=== PATIENT | male | born 1995 | race Hispanic/Latino ===

== ENCOUNTER 2018-08-24 17:40 | Emergency (ER) | payer SELFPAY ==
--- NOTE | 2018-08-24 19:13 | RAD REPORT ---
EXAM DESCRIPTION: RAD - Foot Left 2 View - 08/24/2018 7:01 pm CLINICAL HISTORY: Foot pain FINDINGS: A radiopaque foreign body is not seen. No fracture or dislocation noted
--- NOTE | 2018-08-24 20:06 | ER ---
Nurse's Notes [facility] Name: Juan Carlos Shepherd Age: 23 yrs Sex: Male : 1995 Arrival Date: 08/24/2018 Time: 17:42 Bed 18 Private MD: Diagnosis: Puncture wound without foreign body of foot Presentation: 08/24 17:49 Presenting complaint: Patient states: stepped on a martin nail, now has pain to the left sg foot, worsens with walking or bearing weight. Transition of care: patient was not received from another setting of care. Onset of symptoms was August 24, 2018. Risk Assessment: Do you want to hurt yourself or someone else? Patient reports no desire to harm self or others. Initial Sepsis Screen: Does the patient meet any 2 criteria? No. Patient's initial sepsis screen is negative. Does the patient have a suspected source of infection? No. Patient's initial sepsis screen is negative. Care prior to arrival: None. 17:49 Method Of Arrival: Ambulatory sg 17:49 Acuity: VINNY 4 sg Historical: - Allergies: 17:50 No Known Allergies; sg - Home Meds: 18:14 None [Active]; sg - PMHx: 18:14 None; sg - PSHx: 17:50 None; sg - Immunization history:: Adult Immunizations up to date. - Social history:: Smoking status: Patient/guardian denies using tobacco. - Ebola Screening: : Patient negative for fever greater than or equal to 101.5 degrees Fahrenheit, and additional compatible Ebola Virus Disease symptoms Patient denies exposure to infectious person Patient denies travel to an Ebola-affected area in the 21 days before illness onset No symptoms or risks identified at this time. Screenin:15 Abuse screen: Denies threats or abuse. Denies injuries from another. Nutritional ed1 screening: No deficits noted. Tuberculosis screening: No symptoms or risk factors identified. Fall Risk None identified. Assessment: 19:15 General: Appears in no apparent distress. Behavior is calm, cooperative. Pain: ed1 Complains of pain in arch of left foot Pain currently is 6 out of 10 on a pain scale. Quality of pain is described as aching, throbbing, Pain began 2 hours ago. Is continuous, Aggravated by increased activity, weight bearing. Neuro: Level of Consciousness is awake, alert, obeys commands, Oriented to person, place, time, situation. Cardiovascular: Denies chest pain, Heart tones S1 S2 present. Respiratory: Airway is patent Respiratory effort is even, unlabored, Breath sounds are clear bilaterally. Denies cough, shortness of breath. GI: No signs and/or symptoms were reported involving the gastrointestinal system. : No signs and/or symptoms were reported regarding the genitourinary system. EENT: No signs and/or symptoms were reported regarding the EENT system. Derm: Skin is healthy with good turgor, Skin is dry, Skin is normal, Skin temperature is warm. Musculoskeletal: Circulation, motion, and sensation intact. Range of motion: intact in all extremities. Injury Description: Puncture sustained to left foot was sustained 1-2 hours ago. 20:30 Reassessment: Patient appears in no apparent distress at this time. No changes from ed1 previously documented assessment. Patient and/or family updated on plan of care and expected duration. Pain level reassessed. Patient is alert, oriented x 3, equal unlabored respirations, skin warm/dry/pink. Vital Signs: 18:13 BP 106 / 62; Pulse 87; Resp 18; Temp 98.2; Pulse Ox 100% on R/A; Weight 68.95 kg; sg Height 5 ft. 3 in. (160.02 cm); Pain 4/10; 19:15 BP 109 / 71; Pulse 89; Resp 17; Temp 98.3(O); Pulse Ox 100% on R/A; Pain 6/10; ed1 20:30 BP 106 / 84; Pulse 73; Resp 17; Pulse Ox 100% on R/A; Pain 4/10; ed1 18:13 Body Mass Index 26.93 (68.95 kg, 160.02 cm) ED Course: 17:42 Patient arrived in ED. as 17:50 Triage completed. sg 17:50 Arm band placed on. sg 18:03 Yareli Gracia FNP-C [facility]. snw 18:03 Sheldon Hinds MD is Attending Physician. snw 19:01 XRAY Foot LEFT 2 View In Process Unspecified. EDMS 19:15 Mili Ayala, RN is Primary Nurse. ed1 19:15 Patient has correct armband on for positive identification. Bed in low position. Call ed1 light in reach. Adult w/ patient. 20:24 Wound care: to puncture located on left foot was cleaned with Hibiclens, dressed with ed1 Neosporin, band aid, Patient tolerated well. 20:29 No provider procedures requiring assistance completed. Patient did not have IV access ed1 during this emergency room visit. 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 Exp: ed1 07/24/2020. Lot #: [id number]. } Route: IM; Site: left deltoid; 20:31 Follow up: Response: Medication administered at discharge. ed1 20:24 Drug: Hibiclens 4 % 1 application Route: Topical; Site: wound; ed1 20:24 Drug: Doxycycline 100 mg Route: PO; ed1 20:31 Follow up: Response: Medication administered at discharge. ed1 Outcome: 20:05 Discharge ordered by . abigail 20:29 Discharged to home ambulatory, with family. ed1 20:29 Condition: good 20:29 Discharge instructions given to patient, Instructed on discharge instructions, follow up and referral plans. medication usage, wound care, Demonstrated understanding of instructions, follow-up care, medications, wound care, Prescriptions given X 2. 20:30 Patient left the ED. ed1 Signatures: Dispatcher [employer] EDDariusz Griffith RN RN Yareli Vigil FNP-C FNP-Malorie Abel Erika RN RN ed1 Corrections: (The following items were deleted from the chart) 18:37 17:49 Acuity: VINNY 5 brea
--- NOTE | 2018-08-24 20:06 | EDPHYS ---
Physician Documentation [facility] Name: Juan Carlos Shepherd Age: 23 yrs Sex: Male : 1995 Arrival Date: 08/24/2018 Time: 17:42 Bed 18 Private MD: ED Physician Sheldon Hnids HPI: 08/24 20:25 This 23 yrs old Male presents to ER via Ambulatory with complaints of Puncture snw Wound To Foot - Nail. 20:25 The patient presents with an injury. The complaints affect the left foot. Context: The snw problem was sustained outdoors, resulted from the patient stepping on a nail, while wearing shoes, the patient can fully bear weight, the patient is able to ambulate. Onset: The symptoms/episode began/occurred suddenly, and became persistent. Associated signs and symptoms: The patient has no apparent associated signs or symptoms. The patient has not experienced similar symptoms in the past. It is unknown whether or not the patient has recently seen a physician. Historical: - Allergies: 17:50 No Known Allergies; sg - Home Meds: 18:14 None [Active]; sg - PMHx: 18:14 None; sg - PSHx: 17:50 None; sg - Immunization history:: Adult Immunizations up to date. - Social history:: Smoking status: Patient/guardian denies using tobacco. - Ebola Screening: : Patient negative for fever greater than or equal to 101.5 degrees Fahrenheit, and additional compatible Ebola Virus Disease symptoms Patient denies exposure to infectious person Patient denies travel to an Ebola-affected area in the 21 days before illness onset No symptoms or risks identified at this time. ROS: 20:22 Constitutional: Negative for fever, chills, and weight loss, Eyes: Negative for injury, snw pain, redness, and discharge, ENT: Negative for injury, pain, and discharge, Neck: Negative for injury, pain, and swelling, Cardiovascular: Negative for chest pain, palpitations, and edema, Respiratory: Negative for shortness of breath, cough, wheezing, and pleuritic chest pain, Abdomen/GI: Negative for abdominal pain, nausea, vomiting, diarrhea, and constipation, Back: Negative for injury and pain, : Negative for injury, bleeding, discharge, and swelling, Skin: Negative for injury, rash, and discoloration, Neuro: Negative for headache, weakness, numbness, tingling, and seizure. 20:22 MS/extremity: Positive for injury or acute deformity, pain, of the arch of left foot. Exam: 20:21 Constitutional: This is a well developed, well nourished patient who is awake, alert, snw and in no acute distress. Head/Face: Normocephalic, atraumatic. Eyes: Pupils equal round and reactive to light, extra-ocular motions intact. Lids and lashes normal. Conjunctiva and sclera are non-icteric and not injected. Cornea within normal limits. Periorbital areas with no swelling, redness, or edema. ENT: Nares patent. No nasal discharge, no septal abnormalities noted. Tympanic membranes are normal and external auditory canals are clear. Oropharynx with no redness, swelling, or masses, exudates, or evidence of obstruction, uvula midline. Mucous membranes moist. Neck: Trachea midline, no thyromegaly or masses palpated, and no cervical lymphadenopathy. Supple, full range of motion without nuchal rigidity, or vertebral point tenderness. No Meningismus. Chest/axilla: Normal chest wall appearance and motion. Nontender with no deformity. No lesions are appreciated. Cardiovascular: Regular rate and rhythm with a normal S1 and S2. No gallops, murmurs, or rubs. Normal PMI, no JVD. No pulse deficits. Respiratory: Lungs have equal breath sounds bilaterally, clear to auscultation and percussion. No rales, rhonchi or wheezes noted. No increased work of breathing, no retractions or nasal flaring. Abdomen/GI: Soft, non-tender, with normal bowel sounds. No distension or tympany. No guarding or rebound. No evidence of tenderness throughout. Back: No spinal tenderness. No costovertebral tenderness. Full range of motion. MS/ Extremity: Pulses equal, no cyanosis. Neurovascular intact. Full, normal range of motion. Neuro: Awake and alert, GCS 15, oriented to person, place, time, and situation. Cranial nerves II-XII grossly intact. Motor strength 5/5 in all extremities. Sensory grossly intact. Cerebellar exam normal. Normal gait. Psych: Awake, alert, with orientation to person, place and time. Behavior, mood, and affect are within normal limits. 20:21 Skin: Appearance: normal except for affected area, injury, puncture(s), that are deep, of the arch of left foot, puncture wound without bleeding, exudate, radiographic evidence of fb, +edema and tenderness surrounding puncture.. Vital Signs: 18:13 BP 106 / 62; Pulse 87; Resp 18; Temp 98.2; Pulse Ox 100% on R/A; Weight 68.95 kg; sg Height 5 ft. 3 in. (160.02 cm); Pain 4/10; 19:15 BP 109 / 71; Pulse 89; Resp 17; Temp 98.3(O); Pulse Ox 100% on R/A; Pain 6/10; ed1 20:30 BP 106 / 84; Pulse 73; Resp 17; Pulse Ox 100% on R/A; Pain 4/10; ed1 18:13 Body Mass Index 26.93 (68.95 kg, 160.02 cm) sg MDM: 19:21 Patient medically screened. snw 20:23 Data reviewed: vital signs, nurses notes. Data interpreted: Pulse oximetry: on room air snw is 100 %. Interpretation: normal. Counseling: I had a detailed discussion with the patient and/or guardian regarding: the historical points, exam findings, and any diagnostic results supporting the discharge/admit diagnosis, radiology results, the need for outpatient follow up, for definitive care, to return to the emergency department if symptoms worsen or persist or if there are any questions or concerns that arise at home. Response to treatment: the patient's symptoms have mildly improved after treatment. Special discussion: I discussed in detail with the patient the higher chance of wound infection based on his presenting history. Based on the history and exam findings, there is no indication for further emergent testing or inpatient evaluation. I discussed with the patient/guardian the need to see the primary care provider for further evaluation of the symptoms. 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 Exp: ed1 07/24/2020. Lot #: [id number]. } Route: IM; Site: left deltoid; 20:31 Follow up: Response: Medication administered at discharge. ed1 20:24 Drug: Hibiclens 4 % 1 application Route: Topical; Site: wound; ed1 20:24 Drug: Doxycycline 100 mg Route: PO; ed1 20:31 Follow up: Response: Medication administered at discharge. ed1 Disposition: 08/24/18 20:05 Discharged to Home. Impression: Puncture wound without foreign body of foot. - Condition is Stable. - Discharge Instructions: Puncture Wound, Wound Infection, VIS, Tetanus, Diphtheria (Td) - CDC, Wound Care. - Prescriptions for Doxycycline Hyclate 100 mg Oral Tablet - take 1 tablet by ORAL route every 12 hours; 20 tablet. Diclofenac Sodium 75 mg Oral Tablet Sustained Release - take 1 tablet by ORAL route 2 times per day; 30 tablet. - Work release form, Medication Reconciliation Form, Thank You Letter, Antibiotic Education, Prescription Opioid Use form. - Follow up: Private Physician; When: 2 - 3 days; Reason: Recheck today's complaints, Continuance of care, Re-evaluation by your physician. Follow up: Emergency Department; When: As needed; Reason: Worsening of condition. Addendum: 08/27/2018 19:16 Co-signature as Attending Physician, Sheldon Hinds MD. r n Signatures: Dispatcher [employer] EDMS Dariusz Ye, RN RN sg Yareli Gracia, PEANUT SORTER-C PEANUT SORTER-Csnw Sheldon Hinds MD MD rn RiggsMili RN RN ed1 Corrections: (The following items were deleted from the chart) 08/24 20:30 20:05 08/24/2018 20:05 Discharged to Home. Impression: Puncture wound without foreign ed1 body of foot. Condition is Stable. Forms are Medication Reconciliation Form, Thank You Letter, Antibiotic Education, Prescription Opioid Use. Follow up: Private Physician; When: 2 - 3 days; Reason: Recheck today's complaints, Continuance of care, Re-evaluation by your physician. Follow up: Emergency Department; When: As needed; Reason: Worsening of condition. snw
[2018-08-24] MEDS ORDERED: TETANUS & DIPHTHERIA TOX,ADULT 0.5 ML VIAL ONE (20:31)
[2018-08-24] MEDS ORDERED: DOXYCYCLINE 100 MG CAP PO ONE (20:31)
== END 2018-08-24 20:30 | disposition home or self-care (01) ==
LOC: ER 17:40
DX: S91.332A Puncture wound without foreign body, left foot, initial encounter (principal); W45.0XXA Nail entering through skin, initial encounter; Y93.01 Activity, walking, marching and hiking; Y92.89 Other specified places as the place of occurrence of the external cause; Z23 Encounter for immunization
CPT/HCPCS: 90714; 99284

== ENCOUNTER 2018-11-28 16:53 | Emergency (ER) | payer SELFPAY ==
--- NOTE | 2018-11-28 17:26 | ER ---
Nurse's Notes [facility] Name: Juan Carlos Shepherd Age: 23 yrs Sex: Male : 1995 Arrival Date: 11/28/2018 Time: 16:55 Bed 6 Private MD: Diagnosis: Cellulitis of left lower limb;Cellulitis of right lower limb Presentation: 11/28 17:09 Presenting complaint: Patient states: I have a rash that started on my left leg 2 weeks lp1 ago but now it's on my right leg too"; rash to bilateral lower legs noted, redness, itching;. Transition of care: patient was not received from another setting of care. Onset of symptoms was November 28, 2018. Risk Assessment: Do you want to hurt yourself or someone else? Patient reports no desire to harm self or others. Initial Sepsis Screen: Does the patient meet any 2 criteria? No. Patient's initial sepsis screen is negative. Does the patient have a suspected source of infection? No. Patient's initial sepsis screen is negative. Care prior to arrival: None. 17:09 Method Of Arrival: Ambulatory lp1 17:09 Acuity: VINNY 4 lp1 Triage Assessment: 17:15 General: Appears in no apparent distress. comfortable, Behavior is calm, cooperative, bp appropriate for age. Pain: Denies pain. EENT: No deficits noted. Neuro: No deficits noted. Cardiovascular: No deficits noted. Respiratory: No deficits noted. GI: No signs and/or symptoms were reported involving the gastrointestinal system. : No signs and/or symptoms were reported regarding the genitourinary system. Derm: Rash noted that is itchy. Musculoskeletal: No deficits noted. Historical: - Allergies: 17:11 No Known Allergies; lp1 - Home Meds: 17:11 None [Active]; lp1 - PMHx: 17:11 None; lp1 - PSHx: 17:11 None; lp1 - Immunization history:: Adult Immunizations up to date. - Social history:: Smoking status: Patient/guardian denies using tobacco. - Ebola Screening: : No symptoms or risks identified at this time. - Family history:: not pertinent. - Hospitalizations: : No recent hospitalization is reported. Screenin:11 Abuse screen: Denies threats or abuse. Denies injuries from another. Nutritional lp1 screening: No deficits noted. Tuberculosis screening: No symptoms or risk factors identified. Fall Risk None identified. Assessment: 17:15 General: SEE TRIAGE NOTE. bp 17:47 Reassessment: PT D/C HOME AMBULATORY, DX WITH CELLULITIS. bp Vital Signs: 17:10 BP 128 / 69; Pulse 74; Resp 16; Temp 97.7(TE); Pulse Ox 98% on R/A; Weight 58.97 kg lp1 (R); Height 5 ft. 6 in. (167.64 cm); Pain 1/10; 17:10 Body Mass Index 20.98 (58.97 kg, 167.64 cm) lp1 ED Course: 16:55 Patient arrived in ED. mr 17:10 Triage completed. lp1 17:11 Arm band placed on left wrist. lp1 17:13 William Moreno, RN is Primary Nurse. bp 17:15 Sheldon Hinds MD is Attending Physician. rn 17:41 Patient has correct armband on for positive identification. Bed in low position. Call bp light in reach. Side rails up X2. 17:48 No provider procedures requiring assistance completed. Patient did not have IV access bp during this emergency room visit. Administered Medications: No medications were administered Outcome: 17:27 Discharge ordered by . rn 17:48 Discharged to home ambulatory. bp 17:48 Condition: stable 17:48 Discharge instructions given to patient, Instructed on discharge instructions, follow up and referral plans. medication usage, Demonstrated understanding of instructions, follow-up care, medications, Prescriptions given X 2. 17:50 Patient left the ED. bp Signatures: Omar Rocio mr Sheldon Hinds MD MD rn Pena, Laura, RN RN lp1 William Moreno RN RN bp
--- NOTE | 2018-11-28 17:26 | EDPHYS ---
Physician Documentation [facility] Name: Juan Carlos Shepherd Age: 23 yrs Sex: Male : 1995 Arrival Date: 11/28/2018 Time: 16:55 Bed 6 Private MD: ED Physician Sheldon Hinds HPI: 11/28 17:23 This 23 yrs old Male presents to ER via Ambulatory with complaints of Rash. rn 17:23 The patient's rash thought to be caused by an unknown cause. The rash is located on the rn right leg and left leg. The rash can be described as erythematous. 17:23 Onset: The symptoms/episode began/occurred 2 week(s) ago. Severity of symptoms: At rn their worst the symptoms were mild in the emergency department the symptoms are unchanged. The patient has not experienced similar symptoms in the past. The patient has not recently seen a physician. 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 . Historical: - Allergies: 17:11 No Known Allergies; lp1 - Home Meds: 17:11 None [Active]; lp1 - PMHx: 17:11 None; lp1 - PSHx: 17:11 None; lp1 - Immunization history:: Adult Immunizations up to date. - Social history:: Smoking status: Patient/guardian denies using tobacco. - Ebola Screening: : No symptoms or risks identified at this time. - Family history:: not pertinent. - Hospitalizations: : No recent hospitalization is reported. ROS: 17:23 Constitutional: Negative for fever, chills, and weight loss, MS/Extremity: Negative for rn injury and deformity, Skin: + rash and itchy Exam: 17:23 Constitutional: This is a well developed, well nourished patient who is awake, alert, rn and in no acute distress. Skin: Warm, dry, with bilateral lower ext erythematous/partially pustular rash, no bullae, no skin sloughing, no vesicles. + mild warmth, + scaly with excoriations. MS/ Extremity: Pulses equal, no cyanosis. Neurovascular intact. Full, normal range of motion. Equal circumference. Vital Signs: 17:10 BP 128 / 69; Pulse 74; Resp 16; Temp 97.7(TE); Pulse Ox 98% on R/A; Weight 58.97 kg lp1 (R); Height 5 ft. 6 in. (167.64 cm); Pain 1/10; 17:10 Body Mass Index 20.98 (58.97 kg, 167.64 cm) lp1 MDM: 17:15 Patient medically screened. rn 17:23 Differential diagnosis: cellulitis, folliculitis, fungal infection. Data reviewed: rn vital signs, nurses notes, and as a result, I will discharge patient. Counseling: I had a detailed discussion with the patient and/or guardian regarding: the historical points, exam findings, and any diagnostic results supporting the discharge/admit diagnosis, the need for outpatient follow up, to return to the emergency department if symptoms worsen or persist or if there are any questions or concerns that arise at home. Special discussion: I discussed with the patient/guardian in detail that at this point there is no indication for admission to the hospital. It is understood, however, that if the symptoms persist or worsen the patient needs to return immediately for re-evaluation. ED course: Recommended keeping feet dry and changing work socks frequently, as well as will prescribe abx and fungal infection given likely fungal and got superinfected. . Administered Medications: No medications were administered Disposition: 11/28/18 17:27 Discharged to Home. Impression: Cellulitis of left lower limb, Cellulitis of right lower limb. - Condition is Stable. - Discharge Instructions: Cellulitis, Adult. - Prescriptions for Clindamycin HCl 300 mg Oral Capsule - take 1 capsule by ORAL route every 6 hours for 10 days; 40 capsule. Nystatin- Triamcinolone 100,000-0.1 unit/g-% Topical Cream - apply 1 application by TOPICAL route 2 times per day; 2 tube. - Medication Reconciliation Form, Thank You Letter, Antibiotic Education, Prescription Opioid Use form. - Follow up: Private Physician; When: As needed; Reason: Recheck today's complaints, Re-evaluation by your physician. - Problem is an ongoing problem. - Symptoms are unchanged. Signatures: Sheldon Hinds MD MD rn Pena, Laura, RN RN lp1 William Moreno RN RN bp Corrections: (The following items were deleted from the chart) 17:50 17:27 11/28/2018 17:27 Discharged to Home. Impression: Cellulitis of left lower limb; bp Cellulitis of right lower limb. Condition is Stable. Forms are Medication Reconciliation Form, Thank You Letter, Antibiotic Education, Prescription Opioid Use. Follow up: Private Physician; When: As needed; Reason: Recheck today's complaints, Re-evaluation by your physician. Problem is an ongoing problem. Symptoms are unchanged. rn
== END 2018-11-28 17:50 | disposition home or self-care (01) ==
LOC: ER 16:53
DX: L03.116 Cellulitis of left lower limb (principal); L03.115 Cellulitis of right lower limb
CPT/HCPCS: 99282

== ENCOUNTER 2019-03-01 14:34 | Emergency (ER) | payer SELFPAY ==
[2019-03-01] MEDS ORDERED: FAMOTIDINE 20 MG TAB ONE (14:56)
[2019-03-01] MEDS ORDERED: predniSONE 20 MG TAB ONE (14:57)
--- NOTE | 2019-03-01 15:03 | ER ---
Nurse's Notes [facility] Name: Juan Carlos Shepherd Age: 23 yrs Sex: Male : 1995 Arrival Date: 03/01/2019 Time: 14:40 Bed 26 Private MD: Diagnosis: Allergic contact dermatitis due to plants, except food Presentation: 03/01 14:43 Presenting complaint: Patient states: I was doing some yard work and wiped my face with la1 a glove and noticed my lips stinging and swelling. I took some benadryl and it got a little better but now its hurting. Transition of care: patient was not received from another setting of care. Onset of symptoms was March 01, 2019. Risk Assessment: Do you want to hurt yourself or someone else? Patient reports no desire to harm self or others. Initial Sepsis Screen: Does the patient meet any 2 criteria? No. Patient's initial sepsis screen is negative. Does the patient have a suspected source of infection? No. Patient's initial sepsis screen is negative. Care prior to arrival: None. 14:43 Method Of Arrival: Ambulatory la1 14:43 Acuity: VINNY 4 la1 Historical: - Allergies: 14:44 No Known Allergies; la1 - PMHx: 14:44 None; la1 - Immunization history:: Adult Immunizations up to date. - Social history:: Smoking status: Patient/guardian denies using tobacco. - Ebola Screening: : No symptoms or risks identified at this time. Screenin:11 Abuse screen: Denies threats or abuse. Denies injuries from another. Nutritional mg2 screening: No deficits noted. Tuberculosis screening: No symptoms or risk factors identified. Fall Risk None identified. Assessment: 15:11 General: Appears in no apparent distress. comfortable, Behavior is calm, cooperative. mg2 Pain: Complains of pain in mouth. Neuro: Level of Consciousness is awake, alert, obeys commands, Oriented to person, place, time, situation. Derm: Reports burning, swelling observe in the lip. 15:12 Respiratory: Airway is patent Respiratory effort is even, unlabored, Respiratory mg2 pattern is regular, symmetrical. Vital Signs: 14:44 BP 124 / 74; Pulse 69; Resp 16; Temp 97.8; Pulse Ox 100% on R/A; Weight 61.23 kg; la1 Height 5 ft. 7 in. (170.18 cm); 14:44 Body Mass Index 21.14 (61.23 kg, 170.18 cm) la1 ED Course: 14:40 Patient arrived in ED. mr 14:44 Triage completed. la1 14:44 Arm band placed on left wrist. la1 14:46 [facility]C [facility]. kb 14:46 Shellie Parra MD is Attending Physician. kb 14:52 Phil Germain, RN is Primary Nurse. mg2 15:12 Patient has correct armband on for positive identification. mg2 15:12 No provider procedures requiring assistance completed. Patient did not have IV access mg2 during this emergency room visit. Administered Medications: 14:57 Drug: predniSONE 40 mg Route: PO; mg2 15:02 Follow up: Response: No adverse reaction; Medication administered at discharge. mg2 14:57 Drug: Pepcid 20 mg Route: PO; mg2 15:02 Follow up: Response: No adverse reaction; Medication administered at discharge. mg2 Outcome: 14:58 Discharge ordered by MD. kb 15:12 Discharged to home ambulatory. mg2 15:12 Condition: stable 15:12 Discharge instructions given to patient, Instructed on discharge instructions, follow up and referral plans. medication usage, Demonstrated understanding of instructions, follow-up care, medications, Prescriptions given X 2. 15:13 Patient left the ED. mg2 Signatures: Reanna Cano FNP-C FNP-Viji Rocio Nelson, [place], RN RN la1 Phil Germain, ANGELLA RN mg2
--- NOTE | 2019-03-01 15:03 | EDPHYS ---
Physician Documentation [facility] Name: Juan Carlos Shepherd Age: 23 yrs Sex: Male : 1995 Arrival Date: 03/01/2019 Time: 14:40 Bed 26 Private MD: ED Physician Shellie Parra HPI: 03/01 14:56 This 23 yrs old Male presents to ER via Ambulatory with complaints of Lips kb Swelling. 14:56 The patient presents with localized swelling. Onset: The symptoms/episode kb began/occurred just prior to arrival. Associated signs and symptoms: Pertinent positives: swelling, burning. Possible causes: At home the patient or guardian has treated the symptoms with Benadryl. Severity of symptoms: At their worst the symptoms were moderate in the emergency department the symptoms have improved mildly. The patient has not experienced similar symptoms in the past. The patient has not recently seen a physician. Pt reports he was doing yardwork and wiped his mouth with the back of his glove. Reports swelling and burning to lips. Was handling poison lucille prior to this. Historical: - Allergies: 14:44 No Known Allergies; la1 - PMHx: 14:44 None; la1 - Immunization history:: Adult Immunizations up to date. - Social history:: Smoking status: Patient/guardian denies using tobacco. - Ebola Screening: : No symptoms or risks identified at this time. ROS: 14:54 Constitutional: Negative for fever, chills, and weight loss, Neck: Negative for injury, kb pain, and swelling, Cardiovascular: Negative for chest pain, palpitations, and edema, Respiratory: Negative for shortness of breath, cough, wheezing, and pleuritic chest pain, Abdomen/GI: Negative for abdominal pain, nausea, vomiting, diarrhea, and constipation, Back: Negative for injury and pain, MS/Extremity: Negative for injury and deformity, Skin: Negative for injury, rash, and discoloration, Neuro: Negative for headache, weakness, numbness, tingling, and seizure. 14:54 ENT: Positive for swollen lips. Exam: 14:54 Constitutional: This is a well developed, well nourished patient who is awake, alert, kb and in no acute distress. Head/Face: Normocephalic, atraumatic. Eyes: Pupils equal round and reactive to light, extra-ocular motions intact. Lids and lashes normal. Conjunctiva and sclera are non-icteric and not injected. Cornea within normal limits. Periorbital areas with no swelling, redness, or edema. Neck: Trachea midline, no thyromegaly or masses palpated, and no cervical lymphadenopathy. Supple, full range of motion without nuchal rigidity, or vertebral point tenderness. No Meningismus. Chest/axilla: Normal chest wall appearance and motion. Nontender with no deformity. No lesions are appreciated. Cardiovascular: Regular rate and rhythm with a normal S1 and S2. No gallops, murmurs, or rubs. Normal PMI, no JVD. No pulse deficits. Respiratory: Lungs have equal breath sounds bilaterally, clear to auscultation and percussion. No rales, rhonchi or wheezes noted. No increased work of breathing, no retractions or nasal flaring. Abdomen/GI: Soft, non-tender, with normal bowel sounds. No distension or tympany. No guarding or rebound. No evidence of tenderness throughout. MS/ Extremity: Pulses equal, no cyanosis. Neurovascular intact. Full, normal range of motion. Neuro: Awake and alert, GCS 15, oriented to person, place, time, and situation. Cranial nerves II-XII grossly intact. Motor strength 5/5 in all extremities. Sensory grossly intact. Cerebellar exam normal. Normal gait. 14:54 ENT: Mouth: Lips: swelling. Vital Signs: 14:44 BP 124 / 74; Pulse 69; Resp 16; Temp 97.8; Pulse Ox 100% on R/A; Weight 61.23 kg; la1 Height 5 ft. 7 in. (170.18 cm); 14:44 Body Mass Index 21.14 (61.23 kg, 170.18 cm) la1 MDM: 14:46 Patient medically screened. kb 14:56 Data reviewed: vital signs, nurses notes. Data interpreted: Pulse oximetry: on room air kb is 100 %. Interpretation: normal. Counseling: I had a detailed discussion with the patient and/or guardian regarding: the historical points, exam findings, and any diagnostic results supporting the discharge/admit diagnosis, the need for outpatient follow up, a family practitioner, to return to the emergency department if symptoms worsen or persist or if there are any questions or concerns that arise at home. Administered Medications: 14:57 Drug: predniSONE 40 mg Route: PO; mg2 15:02 Follow up: Response: No adverse reaction; Medication administered at discharge. mg2 14:57 Drug: Pepcid 20 mg Route: PO; mg2 15:02 Follow up: Response: No adverse reaction; Medication administered at discharge. mg2 Disposition: 18:25 Co-signature as Attending Physician, Shellie Parra MD. ma2 Disposition: 03/01/19 14:58 Discharged to Home. Impression: Allergic contact dermatitis due to plants, except food. - Condition is Stable. - Discharge Instructions: Poison Lucille Dermatitis, [id number], Contact Dermatitis, [id number]. - Prescriptions for Pepcid 20 mg Oral Tablet - take 1 tablet by ORAL route every 12 hours for 5 days; 10 tablet. Prednisone 20 mg Oral Tablet - take 1 tablet by ORAL route once daily for 5 days; 5 tablet. - Medication Reconciliation Form, Thank You Letter, Antibiotic Education, Prescription Opioid Use form. - Follow up: Emergency Department; When: As needed; Reason: Worsening of condition. Follow up: Private Physician; When: 2 - 3 days; Reason: Recheck today's complaints, Continuance of care, Re-evaluation by your physician. Signatures: Reanna Cano FNP-C ADITYA-[place] Streeter RN RN la1 Shellie Parra MD MD ma2 Phil Germain RN RN mg2 Corrections: (The following items were deleted from the chart) 15:13 14:58 03/01/2019 14:58 Discharged to Home. Impression: Allergic contact dermatitis due mg2 to plants, except food. Condition is Stable. Forms are Medication Reconciliation Form, Thank You Letter, Antibiotic Education, Prescription Opioid Use. Follow up: Emergency Department; When: As needed; Reason: Worsening of condition. Follow up: Private Physician; When: 2 - 3 days; Reason: Recheck today's complaints, Continuance of care, Re-evaluation by your physician. kb
[2019-03-01 15:28] VITALS: BP 124/74; TEMP 97.8; O2SAT 100
== END 2019-03-01 15:13 | disposition home or self-care (01) ==
LOC: ER 14:34
DX: L23.7 Allergic contact dermatitis due to plants, except food (principal)
CPT/HCPCS: 99283; J7512

== ENCOUNTER 2019-08-02 18:17 | Emergency (ER) | payer SELFPAY ==
[2019-08-02] MEDS ORDERED: DIAZEPAM 5 MG TABLET ONE (18:49)
[2019-08-02] MEDS ORDERED: KETOROLAC 30 MG/ML INJ ONE (18:49)
--- NOTE | 2019-08-02 20:36 | RAD REPORT ---
EXAM DESCRIPTION: RAD - Shoulder Left 2 View - 08/02/2019 8:31 pm CLINICAL HISTORY: Left shoulder pain FINDINGS: No fracture or dislocation is seen. No bone or joint abnormality noted
--- NOTE | 2019-08-03 00:29 | ER ---
Nurse's Notes [facility] Name: Juan Carlos Shepherd Age: 24 yrs Sex: Male : 1995 Arrival Date: 08/02/2019 Time: 18:18 Bed 14 Private MD: Diagnosis: Pain in left shoulder;Fall on same level, unspecified Presentation: 08/02 18:27 Presenting complaint: Patient states: L shoulder pain, ROM limited on L shoulder today. ca1 PT reports slipping yesterday and catching self on both arms. Transition of care: patient was not received from another setting of care. Onset of symptoms was August 02, 2019. Risk Assessment: Do you want to hurt yourself or someone else? Patient reports no desire to harm self or others. Initial Sepsis Screen: Does the patient meet any 2 criteria? No. Patient's initial sepsis screen is negative. Does the patient have a suspected source of infection? No. Patient's initial sepsis screen is negative. Care prior to arrival: None. 18:27 Method Of Arrival: Ambulatory ca1 18:27 Acuity: VINNY 4 ca1 Triage Assessment: 18:28 General: Appears in no apparent distress. comfortable, Behavior is calm, cooperative, ca1 appropriate for age. Pain: Complains of pain in anterior aspect of left shoulder Pain does not radiate. Pain currently is 2 out of 10 on a pain scale. at worst was 10 out of 10 on a pain scale. Quality of pain is described as sharp, Aggravated by repositioning. EENT: No deficits noted. No signs and/or symptoms were reported regarding the EENT system. Neuro: Level of Consciousness is awake, alert, obeys commands, Oriented to person, place, time, situation, Appropriate for age. Derm: Skin is intact, is healthy with good turgor, Skin is pink, warm \T\ dry. Musculoskeletal: Circulation, motion, and sensation intact. Capillary refill < 3 seconds, Range of motion: limited in left shoulder. Historical: - Allergies: 18:28 No Known Allergies; ca1 - Home Meds: 18:28 None [Active]; ca1 - PMHx: 18:28 None; ca1 - PSHx: 18:28 None; ca1 - Immunization history:: Adult Immunizations up to date, Flu vaccine is not up to date. - Coronavirus screen:: The patient has NOT traveled to [place] in the past 14 days. The patient has NOT had contact with known/suspected case of Coronavirus?. - Social history:: Smoking status: Patient reports the use of cigarette tobacco products, smokes one-half pack cigarettes per day. - Ebola Screening: : Patient negative for fever greater than or equal to 101.5 degrees Fahrenheit, and additional compatible Ebola Virus Disease symptoms Patient denies exposure to infectious person Patient denies travel to an Ebola-affected area in the 21 days before illness onset No symptoms or risks identified at this time. Screenin:30 Abuse screen: Denies threats or abuse. Denies injuries from another. Nutritional ca1 screening: No deficits noted. Tuberculosis screening: No symptoms or risk factors identified. Fall Risk Fall in past 12 months (25 points). Assessment: 18:30 Reassessment: See Triage assessment. ca1 19:30 Reassessment: Patient and/or family updated on plan of care and expected duration. Pain vc level reassessed. Patient is alert, oriented x 3, equal unlabored respirations, skin warm/dry/pink. 20:00 Reassessment: Patient and/or family updated on plan of care and expected duration. Pain vc level reassessed. Patient is alert, oriented x 3, equal unlabored respirations, skin warm/dry/pink. Patient states feeling better. Patient states symptoms have improved. Vital Signs: 18:28 BP 131 / 77; Pulse 101; Resp 16 S; Temp 97.9(O); Pulse Ox 98% on R/A; Weight 61.23 kg ca1 (R); Height 5 ft. 6 in. (167.64 cm) (R); Pain 2/10; 18:28 Body Mass Index 21.79 (61.23 kg, 167.64 cm) ca1 ED Course: 18:18 Patient arrived in ED. as 18:19 Yareli Gracia [facility]C [facility]. snw 18:19 Sheldon Hinds MD is Attending Physician. snw 18:27 Triage completed. ca1 18:28 Arm band placed on right wrist. ca1 18:30 Patient has correct armband on for positive identification. Bed in low position. Call ca1 light in reach. Side rails up X 1. Pulse ox on. NIBP on. 18:30 No provider procedures requiring assistance completed. Patient did not have IV access ca1 during this emergency room visit. Sling applied to left arm. 19:01 Val Baez, RN is Primary Nurse. vc 19:46 Pieter Nevarez MD is Referral Physician. snw 19:46 Referral Physician role handed off by Pieter Nevarez MD [facility] 08/03 00:36 Shoulder Left 2 View In Process Unspecified. EDMS Administered Medications: 08/02 18:42 Drug: Valium 5 mg Route: PO; ca1 18:45 Drug: TORadol 30 mg Route: IM; Site: right deltoid; ca1 Outcome: 19:48 Discharge ordered by . snw 20:10 Discharged to home ambulatory, with family. vc 20:10 Condition: good 20:10 Discharge instructions given to patient, family, Instructed on discharge instructions, follow up and referral plans. Demonstrated understanding of 20:10 Prescriptions given X 2. vc 20:11 Patient left the ED. vc Signatures: Dispatcher [employer] EDMS Yareli Gracia, LEASING DIRECTOR-C LEASING DIRECTOR-CsnMalorie Preciado as Luna Heart RN RN ca1 Val Baez RN RN vc Corrections: (The following items were deleted from the chart) 08/03 00:52 00:50 Condition: good vc vc 00:52 00:50 Discharged to home ambulatory, with family, vc vc 00:52 00:50 Discharge instructions given to patient, family, Instructed on discharge vc instructions, follow up and referral plans. Demonstrated understanding of vc
--- NOTE | 2019-08-03 00:30 | EDPHYS ---
Physician Documentation [facility] Name: Juan Carlos Shepherd Age: 24 yrs Sex: Male : 1995 Arrival Date: 08/02/2019 Time: 18:18 Bed 14 Private MD: ED Physician Sheldon Hinds HPI: 08/02 19:33 This 24 yrs old Male presents to ER via Ambulatory with complaints of Shoulder snw Pain. 19:33 The patient or guardian complains of an injury, pain, that is acute. posterior left snw shoulder. Context: The problem was sustained outdoors, resulted from a fall, The patient experiences decreased range of motion, when attempts to raise arm, The patient reports no obvious deformity. Onset: The symptoms/episode began/occurred suddenly, yesterday. Modifying factors: the symptoms are alleviated by remaining still, sling. Severity of symptoms: At their worst the symptoms were moderate. Treatment prior to arrival includes: sling. The patient has not experienced similar symptoms in the past. It is unknown whether or not the patient has recently seen a physician. Historical: - Allergies: 18:28 No Known Allergies; ca1 - Home Meds: 18:28 None [Active]; ca1 - PMHx: 18:28 None; ca1 - PSHx: 18:28 None; ca1 - Immunization history:: Adult Immunizations up to date, Flu vaccine is not up to date. - Coronavirus screen:: The patient has NOT traveled to [place] in the past 14 days. The patient has NOT had contact with known/suspected case of Coronavirus?. - Social history:: Smoking status: Patient reports the use of cigarette tobacco products, smokes one-half pack cigarettes per day. - Ebola Screening: : Patient negative for fever greater than or equal to 101.5 degrees Fahrenheit, and additional compatible Ebola Virus Disease symptoms Patient denies exposure to infectious person Patient denies travel to an Ebola-affected area in the 21 days before illness onset No symptoms or risks identified at this time. ROS: 19:32 Constitutional: Negative for fever, chills, and weight loss, Eyes: Negative for injury, snw pain, redness, and discharge, ENT: Negative for injury, pain, and discharge, Neck: Negative for injury, pain, and swelling, Cardiovascular: Negative for chest pain, palpitations, and edema, Respiratory: Negative for shortness of breath, cough, wheezing, and pleuritic chest pain, Abdomen/GI: Negative for abdominal pain, nausea, vomiting, diarrhea, and constipation, Back: Negative for injury and pain, : Negative for injury, bleeding, discharge, and swelling, Skin: Negative for injury, rash, and discoloration, Neuro: Negative for headache, weakness, numbness, tingling, and seizure, Psych: Negative for depression, anxiety, suicide ideation, homicidal ideation, and hallucinations. 19:32 MS/extremity: Positive for injury or acute deformity, decreased range of motion, pain, of the left shoulder. Exam: 19:31 Constitutional: This is a well developed, well nourished patient who is awake, alert, snw and in no acute distress. Head/Face: Normocephalic, atraumatic. Eyes: Pupils equal round and reactive to light, extra-ocular motions intact. Lids and lashes normal. Conjunctiva and sclera are non-icteric and not injected. Cornea within normal limits. Periorbital areas with no swelling, redness, or edema. ENT: Nares patent. No nasal discharge, no septal abnormalities noted. Tympanic membranes are normal and external auditory canals are clear. Oropharynx with no redness, swelling, or masses, exudates, or evidence of obstruction, uvula midline. Mucous membranes moist. Neck: Trachea midline, no thyromegaly or masses palpated, and no cervical lymphadenopathy. Supple, full range of motion without nuchal rigidity, or vertebral point tenderness. No Meningismus. Chest/axilla: Normal chest wall appearance and motion. Nontender with no deformity. No lesions are appreciated. Cardiovascular: Regular rate and rhythm with a normal S1 and S2. No gallops, murmurs, or rubs. Normal PMI, no JVD. No pulse deficits. Respiratory: Lungs have equal breath sounds bilaterally, clear to auscultation and percussion. No rales, rhonchi or wheezes noted. No increased work of breathing, no retractions or nasal flaring. Abdomen/GI: Soft, non-tender, with normal bowel sounds. No distension or tympany. No guarding or rebound. No evidence of tenderness throughout. Back: No spinal tenderness. No costovertebral tenderness. Full range of motion. Skin: Warm, dry with normal turgor. Normal color with no rashes, no lesions, and no evidence of cellulitis. Neuro: Awake and alert, GCS 15, oriented to person, place, time, and situation. Cranial nerves II-XII grossly intact. Motor strength 5/5 in all extremities. Sensory grossly intact. Cerebellar exam normal. Normal gait. Psych: Awake, alert, with orientation to person, place and time. Behavior, mood, and affect are within normal limits. 19:31 Musculoskeletal/extremity: Extremities: grossly normal except: noted in the left shoulder: decreased ROM, pain, Circulation is intact in all extremities. the left shoulder Sensation intact. Vital Signs: 18:28 BP 131 / 77; Pulse 101; Resp 16 S; Temp 97.9(O); Pulse Ox 98% on R/A; Weight 61.23 kg ca1 (R); Height 5 ft. 6 in. (167.64 cm) (R); Pain 2/10; 18:28 Body Mass Index 21.79 (61.23 kg, 167.64 cm) ca1 MDM: 18:27 Patient medically screened. snw 19:49 Data reviewed: vital signs, nurses notes. Data interpreted: Pulse oximetry: on room air snw is 98 %. Interpretation: normal. Counseling: I had a detailed discussion with the patient and/or guardian regarding: the historical points, exam findings, and any diagnostic results supporting the discharge/admit diagnosis, the presence of at least one elevated blood pressure reading (>120/80) during this emergency department visit, radiology results, the need for outpatient follow up, to return to the emergency department if symptoms worsen or persist or if there are any questions or concerns that arise at home. Special discussion: I have referred the patient to see his PCP for further evaluation of high blood pressure. Based on the history and exam findings, there is no indication for further emergent testing or inpatient evaluation. I discussed with the patient/guardian the need to see the orthopedic surgeon for further evaluation of the symptoms. I discussed with the patient/guardian the need to see the primary care provider for further evaluation of the symptoms. 08/02 18:58 Order name: Shoulder Left 2 View EDMS Administered Medications: 18:42 Drug: Valium 5 mg Route: PO; ca1 18:45 Drug: TORadol 30 mg Route: IM; Site: right deltoid; ca1 Disposition: 08/02/19 19:48 Discharged to Home. Impression: Pain in left shoulder, Fall on same level, unspecified. - Condition is Stable. - Discharge Instructions: Joint Pain, Fall Prevention in the Home, Musculoskeletal Pain, Rotator Cuff Injury, Rotator Cuff Tendinitis, Shoulder Pain, Shoulder Range of Motion Exercises, Cryotherapy, Heat Therapy, How to Use a Sling. - Prescriptions for Diclofenac Sodium 75 mg Oral Tablet Sustained Release - take 1 tablet by ORAL route 2 times per day; 30 tablet. orphenadrine citrate 100 mg Oral Tablet Sustained Release - take 1 tablet by ORAL route 2 times per day As needed; 20 tablet. - Work release form, Medication Reconciliation Form, Thank You Letter, Antibiotic Education, Prescription Opioid Use form. - Follow up: Emergency Department; When: As needed; Reason: Worsening of condition. Follow up: Pieter Nevarez MD; When: 2 - 3 days; Reason: Recheck today's complaints, Continuance of care, Re-evaluation by your physician. Follow up: Private Physician; When: 2 - 3 days; Reason: Recheck today's complaints, Continuance of care, Re-evaluation by your physician. Addendum: 08/04/2019 19:04 Co-signature as Attending Physician, Sheldon Hinds MD. r n Signatures: Dispatcher [employer] EDMS Yareli Gracia, HAND CELL TUBER-C HAND CELL TUBER-Csnw Sheldon Hinds MD MD rn Sly, Luna RN RN ca1 Val Baez RN RN vc Corrections: (The following items were deleted from the chart) 08/02 20:11 19:48 08/02/2019 19:48 Discharged to Home. Impression: Pain in left shoulder; Fall on vc same level, unspecified. Condition is Stable. Forms are Medication Reconciliation Form, Thank You Letter, Antibiotic Education, Prescription Opioid Use. Follow up: Emergency Department; When: As needed; Reason: Worsening of condition. Follow up: Private Physician; When: 2 - 3 days; Reason: Recheck today's complaints, Continuance of care, Re-evaluation by your physician. snw
[2019-08-03 00:50] VITALS: BP 131/77; TEMP 97.9; O2SAT 98
== END 2019-08-02 20:11 | disposition home or self-care (01) ==
LOC: ER 18:17
DX: M25.512 Pain in left shoulder (principal); W18.30XA Fall on same level, unspecified, initial encounter; Y93.9 Activity, unspecified; Y92.9 Unspecified place or not applicable
CPT/HCPCS: 96372; 99284

== ENCOUNTER 2020-06-30 11:54 | Emergency (ER) | payer SELFPAY ==
--- NOTE | 2020-06-30 15:34 | ER ---
Nurse's Notes [facility] Name: Juan Carlos Shepherd Age: 25 yrs Sex: Male : 1995 Arrival Date: 06/30/2020 Time: 11:59 Bed External Waiting [facility] MD: Diagnosis: Presentation: 06/30 12:32 Chief complaint: Patient states: N/V/D with abd cramping since 2 am. R lower back pain. ll1 No fever, no urinary problems. Daughter was sick also, thought they had food poisoning. Coronavirus screen: Client denies travel out of the [place] in the last 14 days. At this time, the client does not indicate any symptoms associated with coronavirus-19. Ebola Screen: Patient denies travel to an Ebola-affected area in the 21 days before illness onset. Initial Sepsis Screen: Does the patient meet any 2 criteria? HR > 90 bpm. No. Patient's initial sepsis screen is negative. Does the patient have a suspected source of infection? Yes: Acute abdominal pain. Risk Assessment: Do you want to hurt yourself or someone else? Patient reports no desire to harm self or others. Onset of symptoms was June 30, 2020. 12:32 Method Of Arrival: Ambulatory ll1 12:32 Acuity: VINNY 3 ll1 Triage Assessment: 12:35 General: Appears uncomfortable, Behavior is calm, cooperative, appropriate for age. ll1 Pain: Complains of pain in R lower back Pain currently is 10 out of 10 on a pain scale. Quality of pain is described as aching. GI: Abdomen is flat, Reports lower abdominal pain, upper abdominal pain, cramping, diarrhea, nausea, vomiting. Historical: - Allergies: 12:32 No Known Drug Allergies; ll1 - PMHx: 12:32 None; ll1 - PSHx: 12:32 None; ll1 - Immunization history:: Flu vaccine is not up to date. - Social history:: Smoking status: Patient reports the use of cigarette tobacco products, denies chronic smoking, but will smoke occasionally, smokes one-half pack cigarettes per day. Assessment: 14:59 Reassessment: called from lobby. Unable to locate patient. Vital Signs: 12:32 BP 124 / 55; Pulse 94; Resp 18; Temp 98.5; Pulse Ox 99% ; Height 5 ft. 6 in. (167.64 ll1 cm); Pain 10; ED Course: 11:59 Patient arrived in ED. ds1 12:32 Arm band placed on. ll1 12:34 Triage completed. ll1 Administered Medications: No medications were administered Outcome: 15:33 Eloped from waiting room. 15:33 Patient left the ED. ss Signatures: Maryse Erazo ds1 Juliana Burton RN RN ss Otto Martinez RN RN ll1
[2020-06-30 16:39] VITALS: BP 124/55; TEMP 98.5; O2SAT 99
== END 2020-06-30 15:33 | disposition left against medical advice (07) ==
LOC: ER 11:54
DX: Z53.21 Procedure and treatment not carried out due to patient leaving prior to being seen by health care provider (principal)
CPT/HCPCS: 99281

== ENCOUNTER 2020-08-27 21:51 | Emergency (ER) | payer SELFPAY ==
--- OUTSIDE RECORDS SUMMARY | 2020-08-27 21:54 | XMS REPORT | Continuity of Care Document ---
:1995 Author Organization [facility] t Address [address] [place] [address] Care Team Providers Name Role Phone Evangelina Colón Attending Clinician Problems This patient has no known problems. Allergies, Adverse Reactions, Alerts This patient has no known allergies or adverse reactions. Medications This patient has no known medications. Procedures This patient has no known procedures. Encounters Start End Encounter Admission Attending Care Care Encounter Source Date/Time Date/Time Type Type Clinicians Facility Department ID 2020-06-30 2020-06-30 Emergency [facility] Villegas [id number] 15:10:00 19:10:00 Roxanna Champion [id number] [place] [id number] [place] [id number] Results This patient has no known results.
[2020-08-27] MEDS ORDERED: DIAZEPAM 5 MG TABLET ONE (22:45)
--- NOTE | 2020-08-27 23:28 | ER ---
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 Hurts to breathe and take a deep breathe. Denies cough. Denies injury to chest. Coronavirus screen: Client denies travel out of the [place] in the last 14 days. At this time, the client does not indicate any symptoms associated with coronavirus-19. Ebola Screen: Patient negative for fever greater than or equal to 101.5 degrees Fahrenheit, and additional compatible Ebola Virus Disease symptoms Patient denies exposure to infectious person. Patient denies travel to an Ebola-affected area in the 21 days before illness onset. No symptoms or risks identified at this time. Initial Sepsis Screen: Does the patient meet any 2 criteria? No. Patient's initial sepsis screen is negative. Does the patient have a suspected source of infection? No. Patient's initial sepsis screen is negative. Risk Assessment: Do you want to hurt yourself or someone else? Patient reports no desire to harm self or others. Onset of symptoms was August 27, 2020. 21:59 Method Of Arrival: Ambulatory ca1 21:59 Acuity: VINNY 3 ca1 Historical: - Allergies: 22:01 No Known Allergies; ca1 - Home Meds: 22:01 None [Active]; ca1 - PMHx: 22:01 None; ca1 - PSHx: 22:01 None; ca1 - Immunization history:: Flu vaccine is not up to date. - Social history:: Smoking status: Smoking status: Patient reports the use of cigarette tobacco products, denies chronic smoking, but will smoke occasionally. Screenin:51 Abuse screen: Denies threats or abuse. Nutritional screening: No deficits noted. ea Tuberculosis screening: No symptoms or risk factors identified. Fall Risk None identified. Assessment: 22:20 General: Appears uncomfortable, Behavior is calm, cooperative, appropriate for age. ea Pain: Complains of pain in chest Pain radiates to back. Neuro: Level of Consciousness is awake, alert, obeys commands, Oriented to person, place, time. Cardiovascular: Patient's skin is warm and dry. Respiratory: Airway is patent Respiratory effort is even, unlabored, Respiratory pattern is regular, symmetrical. Derm: Skin is pink, warm \T\ dry. Musculoskeletal: Reports pain in chest. 23:34 Reassessment: Patient and/or family updated on plan of care and expected duration. Pain ea level reassessed. Patient is alert, oriented x 3, equal unlabored respirations, skin warm/dry/pink. Discharge instruction given to patient. verbalized the understanding of instruction. Pt left ED ambulatory tolerating well. Vital Signs: 21:59 BP 129 / 86; Pulse 80; Resp 16 S; Temp 98.1; Pulse Ox 99% on R/A; Weight 58.97 kg (R); ca1 Height 5 ft. 6 in. (167.64 cm) (R); Pain 5/10; 23:18 BP 112 / 69; Pulse 73; Resp 18; Pulse Ox 99% on R/A; mg2 21:59 Body Mass Index 20.98 (58.97 kg, 167.64 cm) ca1 ED Course: 21:54 Patient arrived in ED. am4 22:01 Triage completed. ca1 22:01 Arm band placed on right wrist. ca1 22:03 Yareli Schilling F[facility]-C [facility]. snw 22:03 Bright Betancourt MD is Attending Physician. snw 22:14 Sariah High, ANGELLA is Primary Nurse. ea 22:52 Patient has correct armband on for positive identification. Bed in low position. Call ea light in reach. pvc monitor on. Pulse ox on. NIBP on. 22:52 Patient maintains SpO2 saturation greater than 95% on room air. ea 22:55 Chest Pa And Lat (2 Views) XRAY In Process Unspecified. EDMS 23:18 No provider procedures requiring assistance completed. mg2 23:34 Patient did not have IV access during this emergency room visit. ea Administered Medications: 22:30 Drug: Valium 5 mg Route: PO; mg2 23:28 Follow up: Response: No adverse reaction mg2 Outcome: 23:27 Discharge ordered by . snw 23:34 Discharged to home ambulatory, with family. ea 23:34 Condition: stable 23:34 Discharge instructions given to patient, Instructed on discharge instructions, Demonstrated understanding of instructions, follow-up care, medications, Prescriptions given X 2. 23:36 Patient left the ED. ea Signatures: Dispatcher [employer] EDYareli Watson, ADITYA-Gerardo ASSEMBLER PIANO-Sariah Dupree RN RN ea Gardose, Michele, RN RN mg2 Luna Heart RN RN ca1 Martinez, Ashley am4
--- NOTE | 2020-08-27 23:28 | EDPHYS ---
Physician Documentation [facility] Name: Juan Carlos Shepherd Age: 25 yrs Sex: Male : 1995 Arrival Date: 08/27/2020 Time: 21:54 Bed 7 Private MD: ED Physician Bright Betancourt HPI: 08/27 22:28 This 25 yrs old Male presents to ER via Ambulatory with complaints of Chest snw Pain, Numbness Of Arm. 22:28 The patient or guardian reports chest pain that is located primarily in the anterior snw chest wall, left. The pain radiates to the left arm, left back. Associated signs and symptoms: The patient has no apparent associated signs or symptoms. The chest pain is described as clutching. Duration: The patient or guardian reports multiple episodes, that wax and wane. Modifying factors: The symptoms are alleviated by remaining still, the symptoms are aggravated by breathing, movement. Severity of pain: At its worst the pain was moderate severe in the emergency department the pain has improved moderately. The patient has not experienced similar symptoms in the past. The patient has not recently seen a physician. smokes on occasional weekends when he drinks. Historical: - Allergies: 22:01 No Known Allergies; ca1 - Home Meds: 22:01 None [Active]; ca1 - PMHx: 22: None; ca1 - PSHx: 22:01 None; ca1 - Immunization history:: Flu vaccine is not up to date. - Social history:: Smoking status: Smoking status: Patient reports the use of cigarette tobacco products, denies chronic smoking, but will smoke occasionally. ROS: 22:27 Constitutional: Negative for fever, chills, and weight loss, Eyes: Negative for injury, snw pain, redness, and discharge, ENT: Negative for injury, pain, and discharge, Neck: Negative for injury, pain, and swelling, Respiratory: Negative for shortness of breath, cough, wheezing, and pleuritic chest pain, Abdomen/GI: Negative for abdominal pain, nausea, vomiting, diarrhea, and constipation, Back: Negative for injury and pain, : Negative for injury, bleeding, discharge, and swelling, Skin: Negative for injury, rash, and discoloration, Neuro: Negative for headache, weakness, numbness, tingling, and seizure, Psych: Negative for depression, anxiety, suicide ideation, homicidal ideation, and hallucinations. 22:27 Cardiovascular: Positive for chest pain, with movement. 22:27 MS/extremity: Positive for pain, tenderness, of the left posterior upper chest wall, radiates to left elbow. Exam: 22:26 Constitutional: This is a well developed, well nourished patient who is awake, alert, snw and in no acute distress. Head/Face: Normocephalic, atraumatic. Eyes: Pupils equal round and reactive to light, extra-ocular motions intact. Lids and lashes normal. Conjunctiva and sclera are non-icteric and not injected. Cornea within normal limits. Periorbital areas with no swelling, redness, or edema. ENT: Nares patent. No nasal discharge, no septal abnormalities noted. Tympanic membranes are normal and external auditory canals are clear. Oropharynx with no redness, swelling, or masses, exudates, or evidence of obstruction, uvula midline. Mucous membranes moist. Neck: Trachea midline, no thyromegaly or masses palpated, and no cervical lymphadenopathy. Supple, full range of motion without nuchal rigidity, or vertebral point tenderness. No Meningismus. Respiratory: Lungs have equal breath sounds bilaterally, clear to auscultation and percussion. No rales, rhonchi or wheezes noted. No increased work of breathing, no retractions or nasal flaring. Abdomen/GI: Soft, non-tender, with normal bowel sounds. No distension or tympany. No guarding or rebound. No evidence of tenderness throughout. Back: No spinal tenderness. No costovertebral tenderness. Full range of motion. Skin: Warm, dry with normal turgor. Normal color with no rashes, no lesions, and no evidence of cellulitis. MS/ Extremity: Pulses equal, no cyanosis. Neurovascular intact. Full, normal range of motion. Neuro: Awake and alert, GCS 15, oriented to person, place, time, and situation. Cranial nerves II-XII grossly intact. Motor strength 5/5 in all extremities. Sensory grossly intact. Cerebellar exam normal. Normal gait. Psych: Awake, alert, with orientation to person, place and time. Behavior, mood, and affect are within normal limits. 22:26 Chest/axilla: Inspection: normal, Palpation: tenderness, that is moderate, that totally reproduces the patient's complaints, Axilla: are normal. 22:26 Cardiovascular: Rate: normal, Rhythm: regular, Pulses: no pulse deficits are appreciated, Pulses are 2+ in right radial artery, right brachial artery, right posterior tibial artery, left radial artery, left brachial artery, left posterior tibial artery, left carotid pulse and right carotid pulse. Heart sounds: Edema: is not appreciated. Vital Signs: 21:59 BP 129 / 86; Pulse 80; Resp 16 S; Temp 98.1; Pulse Ox 99% on R/A; Weight 58.97 kg (R); ca1 Height 5 ft. 6 in. (167.64 cm) (R); Pain 5/10; 23:18 BP 112 / 69; Pulse 73; Resp 18; Pulse Ox 99% on R/A; mg2 21:59 Body Mass Index 20.98 (58.97 kg, 167.64 cm) ca1 MDM: 22:16 Patient medically screened. snw 22:39 Data reviewed: vital signs, nurses notes, EKG. Data interpreted: Pulse oximetry: on snw room air is 99 %. Interpretation: normal. 08/27 22:25 Order name: Chest Pa And Lat (2 Views) XRAY snw 08/27 22:25 Order name: EKG; Complete Time: 22:26 snw 08/27 22:25 Order name: EKG - Nurse/Tech; Complete Time: 22:29 snw EC:30 Rate is 66 beats/min. Rhythm is regular. QRS [place] is Normal. [place] interval is normal. QT snw interval is normal. No Q waves. T waves are Normal. No ST changes noted. Clinical impression: Normal ECG. Administered Medications: 22:30 Drug: Valium 5 mg Route: PO; mg2 23:28 Follow up: Response: No adverse reaction mg2 Disposition: 08/28 06:05 Co-signature as Attending Physician, Bright Betancourt MD. [email or web address] Disposition: 08/27/20 23:27 Discharged to Home. Impression: Chest pain on breathing, Muscle spasm of back. - Condition is Stable. - Discharge Instructions: Chest Wall Pain, Costochondritis, Muscle Cramps and Spasms, Back Injury Prevention, [id number], Cryotherapy, Heat Therapy. - Prescriptions for Diclofenac Sodium 75 mg Oral Tablet Sustained Release - take 1 tablet by ORAL route 2 times per day; 30 tablet. orphenadrine citrate 100 mg Oral Tablet Sustained Release - take 1 tablet by ORAL route 2 times per day As needed; 20 tablet. - Work release form, Medication Reconciliation Form, Thank You Letter, Antibiotic Education, Prescription Opioid Use form. - Follow up: Emergency Department; When: As needed; Reason: Worsening of condition. Follow up: Private Physician; When: 2 - 3 days; Reason: Recheck today's complaints, Continuance of care, Re-evaluation by your physician. Signatures: Dispatcher [employer] EDMS Yareli Schilling, SANDING MACHINE OPERATOR-C SANDING MACHINE OPERATOR-Csnw Sariah High, RN Phil Denny ea, RN Luna Adames RN ANGELLA ca1 Bright Betancourt MD MD 7 Corrections: (The following items were deleted from the chart) 08/27 22:35 21:30 Rate is 63 beats/min. Rhythm is regular. QRS [place] is Normal. Right axis deviation snw noted. [place] interval is normal. QRS interval is normal. QT interval is normal. No Q waves. T waves are Normal. No ST changes noted. Clinical impression: LVH. snw 23:36 23:27 08/27/2020 23:27 Discharged to Home. Impression: Chest pain on breathing; Muscle ea spasm of back. Condition is Stable. Forms are Medication Reconciliation Form, Thank You Letter, Antibiotic Education, Prescription Opioid Use. Follow up: Emergency Department; When: As needed; Reason: Worsening of condition. Follow up: Private Physician; When: 2 - 3 days; Reason: Recheck today's complaints, Continuance of care, Re-evaluation by your physician. snw
[2020-08-27 23:40] VITALS: TEMP 98.1; O2SAT 99
[2020-08-27 23:41] VITALS: BP 112/69
--- NOTE | 2020-08-28 08:23 | RAD REPORT ---
EXAM DESCRIPTION: Zoe Hercules (2 Views)08/27/2020 10:56 pm CLINICAL HISTORY: Cough COMPARISON: 2014 FINDINGS: The lungs appear clear of acute infiltrate. The heart is normal size IMPRESSION: No acute abnormalities displayed
== END 2020-08-27 23:36 | disposition home or self-care (01) ==
LOC: ER 21:51
DX: M62.830 Muscle spasm of back (principal); F17.210 Nicotine dependence, cigarettes, uncomplicated
CPT/HCPCS: 71046; 93005; 99285

== ENCOUNTER 2021-01-20 06:01 | Emergency (ER) | payer SELFPAY ==
--- OUTSIDE RECORDS SUMMARY | 2021-01-20 06:03 | XMS REPORT | Continuity of Care Document ---
:1995 Author Organization [facility] t Address [address] [place] [address] Care Team Providers Name Role Phone Evangelina [...] Clinicians Facility Department ID 2020-06-30 2020-06-30 Emergency [facility] [id number] 15:10:00 19:10:00 Roxanna Champion [id number] [place] [id number] [place] [phone] [id number] Results This patient has no known results.
[2021-01-20] MEDS ORDERED: FLUORESCEIN SODIUM 1 MG/WRAP ONE (07:43)
[2021-01-20] MEDS ORDERED: TETRACAINE HCL 0.5% 4ML OPTH ONE (07:43)
[2021-01-20] MEDS ORDERED: TETANUS & DIPHTHERIA TOX,ADULT 0.5 ML VIAL ONE (07:43)
--- NOTE | 2021-01-20 07:53 | ER ---
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 Coronavirus screen: Client denies travel out of the [place] in the last 14 days. At this time, the client does not indicate any symptoms associated with coronavirus-19. Ebola Screen: No symptoms or risks identified at this time. The patient denies any loss of vision. Risk Assessment: Do you want to hurt yourself or someone else? Patient reports no desire to harm self or others. Onset of symptoms was January 20, 2021. 06:30 Method Of Arrival: Ambulatory lp1 06:30 Acuity: VINNY 4 lp1 06:35 Initial Sepsis Screen: Does the patient meet any 2 criteria? No. Patient's initial lp1 sepsis screen is negative. Does the patient have a suspected source of infection? No. Patient's initial sepsis screen is negative. Triage Assessment: 06:33 General: Appears in no apparent distress. Behavior is calm. Pain: Complains of pain in lp1 right eye. EENT: Eyes Right lower eyelid swelling, tearing clear drainage. Neuro: No deficits noted. Respiratory: No deficits noted. Derm: Skin is pink, warm \T\ dry. Historical: - Allergies: 06:32 No Known Allergies; lp1 - Home Meds: 06:32 None [Active]; lp1 - PMHx: 06:32 None; lp1 - PSHx: 06:32 None; lp1 - Immunization history:: Adult Immunizations up to date. - Social history:: Smoking status: Patient reports the use of cigarette tobacco products, denies chronic smoking, but will smoke occasionally. Screenin:33 Abuse screen: Denies threats or abuse. Denies injuries from another. Nutritional lp1 screening: No deficits noted. Tuberculosis screening: No symptoms or risk factors identified. Fall Risk None identified. Assessment: 08:22 Reassessment: Patient appears in no apparent distress at this time. Patient and/or ss family updated on plan of care and expected duration. Pain level reassessed. Patient is alert, oriented x 3, equal unlabored respirations, skin warm/dry/pink. Vital Signs: 06:33 BP 113 / 65; Pulse 63; Resp 16; Temp 98.2; Pulse Ox 100% on R/A; Weight 58.97 kg (R); lp1 Height 5 ft. 6 in. (167.64 cm); Pain 06/19; 06:33 Body Mass Index 20.98 (58.97 kg, 167.64 cm) lp1 ED Course: 06:14 Patient arrived in ED. bp1 06:32 Triage completed. lp1 06:32 Arm band placed on right wrist. lp1 06:35 Patient has correct armband on for positive identification. lp1 06:36 Raj Fernandez NP is PHCP. pm1 06:36 Stan Carter MD is Attending Physician. pm1 07:16 Juliana Burton RN is Primary Nurse. 08:21 Assist provider with eye exam of right eye. using fluorescein stain, Performed by Raj Fernandez NP Patient tolerated well. Patient did not have IV access during this emergency room visit. 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. Exp: ss 09/30/2022. Lot #: [id number]. } Route: IM; Site: right deltoid; 08:22 Follow up: Response: No adverse reaction 07:48 Drug: Tetracaine Drops 0.5 % 1 drops Route: Ophthalmic; Site: right eye; Outcome: 07:52 Discharge ordered by . pm1 08:21 Discharged to home ambulatory. ss 08:21 Condition: good 08:21 Discharge instructions given to patient, family, Instructed on discharge instructions, follow up and referral plans. medication usage, Demonstrated understanding of instructions, follow-up care, medications, Prescriptions given X 1. 08:22 Patient left the ED. ss Signatures: Juliana Burton, ANGELLA PERALES Susanne Sesay RN RN lp1 Raj Fernandez NP TITLE VEHICLE SERVICE ATTENDANT pm1 Swetha Reynoso bp1 Corrections: (The following items were deleted from the chart) 06:35 06:33 Temp 98.2F; 58.97 kg Reported; Height 5 ft. 6 in.; BMI: 20.9; Pain 1/10; lp1 lp1
--- NOTE | 2021-01-20 07:53 | EDPHYS ---
Physician Documentation [facility] Name: Juan Carlos Shepherd Age: 25 yrs Sex: Male : 1995 Arrival Date: 01/20/2021 Time: 06:14 Bed 11 Private MD: ED Physician Stan Carter HPI: 01/20 06:50 This 25 yrs old Male presents to ER via Ambulatory with complaints of Eye pm1 Injury. 06:50 The patient is experiencing pain, redness, tearing, swelling, The patient sustained to pm1 the right eye, caused by saw dust. Onset: The symptoms/episode began/occurred yesterday. Duration: the symptoms are continuous. Alleviated by nothing. Associated signs and symptoms: Pertinent negatives: Visual loss. Patient does not utilize any form of vision correction. Severity of symptoms: in the emergency department the symptoms are worse Patient with irritation and pain to eye throughout yesterday woke up with swelling this morning. The patient has experienced a previous episode, many years ago, Metal shavings in eye. The patient has not recently seen a physician. Patient working on with wood. Patient got sawdust to right eye. Attempted to wash eye multiple times without improvement in symptoms. Woke up today with swelling to right eyelid. Historical: - Allergies: 06:32 No Known Allergies; lp1 - Home Meds: 06:32 None [Active]; lp1 - PMHx: 06:32 None; lp1 - PSHx: 06:32 None; lp1 - Immunization history:: Adult Immunizations up to date. - Social history:: Smoking status: Patient reports the use of cigarette tobacco products, denies chronic smoking, but will smoke occasionally. ROS: 06:53 Constitutional: Negative for fever, chills, and weight loss. pm1 06:53 Cardiovascular: Negative for chest pain, palpitations, and edema, Respiratory: Negative for shortness of breath, cough, wheezing, and pleuritic chest pain, Skin: Negative for injury, rash, and discoloration, Neuro: Negative for headache, weakness, numbness, tingling, and seizure. 06:53 Eyes: Positive for pain, redness, swelling, of the right eye. 06:53 All other systems are negative. Exam: 07:51 Constitutional: This is a well developed, well nourished patient who is awake, alert, pm1 and in no acute distress. Head/Face: Normocephalic, atraumatic. 07:51 Skin: Warm, dry with normal turgor. Normal color with no rashes, no lesions, and no evidence of cellulitis. MS/ Extremity: Pulses equal, no cyanosis. Neurovascular intact. Full, normal range of motion. 07:51 Eyes: Extraocular movements: no acute changes, Conjunctiva: injected, in the right eye, Corneas: abrasion, that is small, on the right, at 6 o'clock, foreign body, is not appreciated, a fluorescein strip employed to appreciate the findings, Sclera: no acute changes, Lids and lashes: Mild swelling present to right upper and lower eyelids. Examination of the other eye reveals no obvious gross abnormality. 07:51 Cardiovascular: Exam negative for acute changes, Rate: normal, Rhythm: regular, Pulses: no pulse deficits are appreciated. 07:51 Respiratory: Exam negative for acute changes, respiratory distress, shortness of breath. 07:51 Neuro: Exam negative for acute changes, Orientation: is normal, Mentation: is normal, Motor: is normal, moves all fours, Gait: is steady, at a normal pace, without difficulty. Vital Signs: 06:33 BP 113 / 65; Pulse 63; Resp 16; Temp 98.2; Pulse Ox 100% on R/A; Weight 58.97 kg (R); lp1 Height 5 ft. 6 in. (167.64 cm); Pain 1/10; 06:33 Body Mass Index 20.98 (58.97 kg, 167.64 cm) lp1 MDM: 06:37 Patient medically screened. [facility] 07:51 Data reviewed: vital signs. Data interpreted: Pulse oximetry: on room air is 100 %. pm1 Interpretation: normal. Counseling: I had a detailed discussion with the patient and/or guardian regarding: the historical points, exam findings, and any diagnostic results supporting the discharge/admit diagnosis, the need for outpatient follow up, an opthalmologist, to return to the emergency department if symptoms worsen or persist or if there are any questions or concerns that arise at home. 08:00 ED course: Patient given good Rx savings card and good Rx locations for filling Vigamox pm1 prescription. 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 Exp: ss 09/30/2022. Lot #: [id number]. } Route: IM; Site: right deltoid; 08:22 Follow up: Response: No adverse reaction 07:48 Drug: Tetracaine Drops 0.5 % 1 drops Route: Ophthalmic; Site: right eye; ss Disposition Summary: 01/20/21 07:52 Discharge Ordered Location: Home pm1 Problem: new pm1 Symptoms: have improved pm1 Condition: Stable pm1 Diagnosis - Injury of conjunctiva and corneal abrasion without foreign body, right eye pm1 Followup: pm1 - With: Emergency Department - When: As needed - Reason: Worsening of condition Followup: pm1 - With: Private Physician - When: 2 - 3 days - Reason: Recheck today's complaints, Continuance of care, Re-evaluation by your physician Discharge Instructions: - Discharge Summary Sheet pm1 - Corneal Abrasion pm1 Forms: - Medication Reconciliation Form pm1 - Work release form pm1 - Thank You Letter pm1 - Antibiotic Education pm1 - Prescription Opioid Use pm1 Prescriptions: - Vigamox 0.5 % Ophthalmic Drops - instill 1 drop by OPHTHALMIC route every 8 hours for 7 days; 5 milliliter; pm1 Refills: 0, Product Selection Permitted Addendum: 01/23/2021 07:04 Co-signature as Attending Physician, Stan Carter MD I agree with the assessment and c mary plan of care. Signatures: Stan Carter MD MD cha Smirch, Shelby, RN RN ss Susanne Sesay RN RN lp1 Raj Fernandez NP ADVERTISING ASSISTANT MANAGER pm1
[2021-01-20 08:28] VITALS: BP 113/65; TEMP 98.2; O2SAT 100
== END 2021-01-20 08:22 | disposition home or self-care (01) ==
LOC: ER 06:01
DX: S05.01XA Injury of conjunctiva and corneal abrasion without foreign body, right eye, initial encounter (principal); F17.210 Nicotine dependence, cigarettes, uncomplicated; Z23 Encounter for immunization
CPT/HCPCS: 90471; 90714; 99283

== ENCOUNTER 2021-10-04 20:47 | Emergency (ER) | payer SELFPAY ==
--- OUTSIDE RECORDS SUMMARY | 2021-10-04 20:52 | XMS REPORT | Continuity of Care Document ---
:1995 Author Organization [facility] t Address [address] [place] [address] Care Team Providers Name Role Phone Evangelina Colón Attending Clinician Payers Payer Name Policy Type Policy Number Effective Date Expiration Date S ource MEDICAID OF [place] [id number] 2013 00:00:00 Problems Condition Condition Condition Status Onset Resolution Last Treating Co mments Source Name Details Category Date Date Treatment Clinician Date Stiffness Stiffness Disease Active 2012-06 Uni vers of hand of hand 2 ity of joint joint 00:00: [place] 00 Medical Branch Closed Closed Disease Active 2012-06 Univers nondisplac nondisplac 2-12 it y of ed ed 00:00: [place] fracture fracture 00 Medica l of neck of of neck of Br anch fifth fifth metacarpal metacarpal bone of bone of right hand right hand Allergies, Adverse Reactions, Alerts Allergy Allergy Status Severity Reaction(s) Onset Inactive Treating Comm ents Source Name Type Date Date Clinician NO KNOWN Drug Active Univers ALLERGIE Class ity of S [facility] Social History Social Habit Start Date Stop Date Quantity Comments Source Sex Assigned At [facility] Medical Branch Exposure to Not sure [facility] SARS-CoV-2 (event) Medica l Branch Tobacco use and 2013-07-21 2013-07-21 Never used [facility] exposure 00:00:00 00:00:00 [facility] Alcohol intake 2013-07-21 2013-07-21 [facility] 00:00:00 00:00:00 [facility] History of tobacco 2013-05-21 Smoker [facility] use 00:00:00 Medical [place] Smoking Status Start Date Stop Date Source Former smoker 2013-07-21 00:00:00 2013-07-21 00:00:00 [facility] [place] [facility] Medications Ordered Filled Start Stop Current Ordering Indication Dosage Frequency Signature Comments Components Source Medication Medication Date Date Medication? Clinician (SIG) Name Name NaCl 0.9% No 1000mL at 999 Uni vers (NS) bolus 07-01 mL/hr, ity of infusion 00:45: 00:37 1,000 mL, Moris as 1,000 mL 00 :00 IV Medical Infusion, [place] ONCE, 1 dose, Shana 06/30/20 at 1845, STAT ibuprofen 2020- No 400mg 400 mg, Uni vers (IBU) 07-01 Oral, ity of tablet 400 00:30: 23:31 ONCE, 1 Moris as mg 00 :00 dose, [facility] Medical 06/30/20 at [place] 1830, DEEPAK methocarbam 2020- No 500mg 500 mg, U nivers oL 07-01 Oral, ity of (ROBAXIN) 00:30: 23:31 ONCE, 1 [place] tablet 500 00 :00 dose, Shana Medi everardo mg 06/30/20 at [place] 1830, Routine ondansetron 2020- No 4mg 4 mg, Univ ers (ZOFRAN-ODT 07-01 Oral, ity of ) 00:00: 23:09 ONCE, 1 [place] disintegrat 00 :00 dose, Shana Med ical ing tablet 06/30/20 at [facility] 4 mg 1800, Routine ondansetron Yes [id number] 4mg Take 1 Univers (ZOFRAN 1-21 tablet by ity of ODT) 4 mg 00:00: mouth [place] disintegrat 00 every 8 Medic al ing tablet (eight) Branch hours as needed for Nausea and Vomiting (N/V). methocarbam Yes [id number] 500mg Take 1 Univers oL 500 mg -21 tablet by ity o f tablet 00:00: mouth 4 [place] 00 (four) Medical times Branch daily as needed for Pain (scale 4-6). Vital Signs Vital Name Observation Time Observation Value Comments Source Systolic blood 2020-07-01 01:00:00 122 mm[Hg] Univer sity of pressure [facility] Diastolic blood 2020-07-01 01:00:00 84 mm[Hg] Unive rsity of pressure [facility] Heart rate 2020-07-01 01:00:00 77 /min Universi ty of [facility] Body temperature 2020-07-01 01:00:00 37.44 Mikala Univ ersity of [place] [facility] Branch Respiratory rate 2020-07-01 01:00:00 18 /min Univ ersity of [place] [facility] Branch Oxygen saturation in 2020-07-01 01:00:00 99 /min University of Arterial blood by [facility] Pulse oximetry Branch Body weight 2020-06-30 21:08:00 58.968 kg Universi ty of [facility] Systolic blood 2020-07-01 01:00:00 122 mm[Hg] Univer sity of pressure [facility] Diastolic blood 2020-07-01 01:00:00 84 mm[Hg] Unive rsity of pressure [facility] Heart rate 2020-07-01 01:00:00 77 /min Universi ty of [facility] Body temperature 2020-07-01 01:00:00 37.44 Mikala [facility] ersity of [facility] Respiratory rate 2020-07-01 01:00:00 18 /min Univ ersity of [place] [facility] Branch Oxygen saturation in 2020-07-01 01:00:00 99 /min University of Arterial blood by [facility] Pulse oximetry Branch Body weight 2020-06-30 21:08:00 58.968 kg Universi ty of [facility] Procedures Procedure Date / Time Performed Performing Clinician Formerly [facility] e NOTICE OF PRIVACY 2020-06-30 20:58:54 Doctor Unassigned, No [facility] PRACTICES Name Medical Branch Encounters Start End Encounter Admission Attending Care Care Encounter Source Date/Time Date/Time Type Type Clinicians Facility Department ID 2020-06-30 2020-06-30 Emergency EITAN Villegas [id number] [facility] [place] [facility] 15:10:00 19:10:00 Roxanna Champion [id number] i ty [facility] [id number] [facility] [id number] [facility] 084 Branch 2020-06-30 2020-06-30 Emergency Bakari, [facility] [id number] 15:10:00 19:10:00 Roxnana Champion [id number] [place] [id number] [place] [id number] 2020-06-30 2020-06-30 Emergency X [facility] E[facility] [id number] Univers 15:10:00 15:10:00 [facility] Results Test Description Test Time Test Comments Results Result Comments Source SARS-CoV-2 (COVID-19), RT-PCR/TMA 2021-07-06 08:05:27 Test Item Value Reference Range Interpretation Comme nts SARS-CoV-2 INTERPRETATION POSITIVE SEE NOTE A S ARS-CoV-2 RNA DETECTEDPositive (test code = 34038) results are indicative of the presence of JOSE GUADALUPE S-CoV-2 RNA;clinical co rrelation with patient history and other diagnosticinfor mation is necessary to de termine patient infection statu s.Positive results do not rule out bacterial infection or co -infectionwith other viruses. Positive and negative predic tive values oftesting are h ighly dependent on prevalence. SOURCE (test code = 84989) NASOPHARYNGEAL Note: Methodology is [employer] Real-Time RT-PC R. The expected result or ref erence range is NEGATIVE (Not D etected). For more information reg arding COVID-19 testing to incl ude clinicalinforma tion, methodology detail, intende d use, FDA authorization a ndrecommended fact sheets for alma rosa ents or healthcare providers, see NewTest Announcement: S ARS-CoV-2 (COVID-19) by N AAT at URL below (note,fact shee ts are provided by method given in report:https:// www.[employer]/cl inicians/client -communications/ Alternatively, see downloadable PDF fact sheet at:https://www. [employer]/COVID- 19-RT-PCR UNLESS OTHERWISE INDICATED, ALL TESTING PERFORMED ATCLINICAL PATH [facility], [facility]. [address] [place] [address] 4 LABORATORY DIRE CTOR: RUDI OTOOLE M.D. CLIA NUMBER [id number] [place]. [id number] SARS-CoV-2 (COVID-19), RT-PCR/[id number] 14:21:21 Test Item Value Reference Interpretation Comments Range SARS-CoV-2 POSITIVE SEE NOTE A SARS-CoV-2 RNA INTERPRETATION DETECTEDPosit jass results (test code = are indicative of the 55740) presence of JOSE GUADALUPE S-CoV-2 RNA;clinical co rrelation with patient hi story and other diagnosticinfor mation is necessary to de termine patient infecti on status.Positive results do not rule out bacterial infec tion or co-infectionwit h other viruses. Positi ve and negative predic tive values oftestin g are highly dependen t on prevalence. SOURCE (test code NASOPHARYNGEAL Note: M ethodology is = 91108) Julieta Dustin [place] l-Time RT-PCR. The exp ected result or refe rence range is NEGATI VE (Not Detected). For more information reg arding COVID-19 testin g to include clinicalinforma tion, methodology det ail, intended use, F DA authorization andrecommended fact sheets for alma rosa ents or healthcare prov iders, see NewTest Announcement: S ARS-CoV-2 (COVID-19) by N AAT at URL below (note ,fact sheets are prov ided by method given in report:https:// www.[employer]/clinicia ns/client -communications / Alternatively, see downloadable PD F fact sheet at:https://www. [employer].c om/DSYXQ-53-XV- PCR UNLESS OTHERWIS E INDICATED, ALL TESTING PERFORMED [facility] N[facility] [employer] [address] [place] [address] 4 LABORATORY DIR DYAANARA: RUDI ANG M.D. CLIA NUMBER [id number] CAP ACCREDITATION N O. [id number]
[2021-10-05] MEDS ORDERED: ONDANSETRON 4 MG (ODT) TAB ONE (00:13)
[2021-10-05] MEDS ORDERED: ACETAMINOPHEN 500 MG TAB ONE (00:14)
[2021-10-05 00:20] LABS: SARS-COV-2 RT PCR NEGATIVE (NEGATIVE)
--- NOTE | 2021-10-05 00:43 | ER ---
Nurse's Notes [facility] Name: Juan Carlos Shepherd Age: 26 yrs Sex: Male : 1995 Arrival Date: 10/04/2021 Time: 20:49 Bed 10 Private MD: Diagnosis: Influenza due to identified novel influenza A virus Presentation: 10/04 22:26 Chief complaint: Patient states: body aches with chills, lower back pain and nausea lg3 gradually getting worse. no appetite. all started yesterday. Coronavirus screen: Client denies travel out of the [place] in the last 14 days. Client presents with at least one sign or symptom that may indicate coronavirus-19. Standard/surgical mask placed on the client. Ebola Screen: No symptoms or risks identified at this time. Initial Sepsis Screen: Does the patient meet any 2 criteria? No. Patient's initial sepsis screen is negative. Does the patient have a suspected source of infection? No. Patient's initial sepsis screen is negative. Risk Assessment: Do you want to hurt yourself or someone else? Patient reports no desire to harm self or others. Onset of symptoms was October 03, 2021. 22:26 Method Of Arrival: Ambulatory lg3 22:26 Acuity: VINNY 4 lg3 22:29 Chief complaint:. lg3 Triage Assessment: 22:28 General: Appears in no apparent distress. uncomfortable, Behavior is calm, cooperative. lg3 Pain: Complains of pain in generalized body aches. EENT: No deficits noted. No signs and/or symptoms were reported regarding the EENT system. Neuro: No deficits noted. Level of Consciousness is awake, alert, obeys commands, Oriented to person, place, time, situation. Cardiovascular: No deficits noted. Denies chest pain, shortness of breath. Respiratory: No deficits noted. Airway is patent Trachea midline Respiratory effort is even, unlabored, Respiratory pattern is regular, symmetrical. GI: No deficits noted. No signs and/or symptoms were reported involving the gastrointestinal system. : No deficits noted. No signs and/or symptoms were reported regarding the genitourinary system. Derm: No deficits noted. No signs and/or symptoms reported regarding the dermatologic system. Skin is intact, is healthy with good turgor, Skin is dry, Skin is pink, warm \T\ dry. Musculoskeletal: No deficits noted. No signs and/or symptoms reported regarding the musculoskeletal system. Circulation, motion, and sensation intact. Range of motion: intact in all extremities. Historical: - Allergies: 22:28 No Known Allergies; lg3 - Home Meds: 22:28 None [Active]; lg3 - PMHx: 22:28 None; lg3 - PSHx: 22:28 None; lg3 - Immunization history:: Adult Immunizations up to date, Client reports having NOT received the Covid vaccine. - Social history:: Smoking status: Reported history of juuling and/or vaping. Patient uses alcohol, but reports only rare drinking. Screenin/28 00:18 Abuse screen: Denies threats or abuse. Nutritional screening: No deficits noted. ag7 Tuberculosis screening: No symptoms or risk factors identified. Fall Risk No fall in past 12 months (0 pts). No secondary diagnosis (0 pts). No IV (0 pts). Ambulatory Aid- None/Bed Rest/Nurse Assist (0 pts). Gait- Normal/Bed Rest/Wheelchair (0 pts) Mental Status- Oriented to own ability (0 pts). Total Valentin Fall Scale indicates No Risk (0-24 pts). Assessment: 00:16 General: Appears in no apparent distress. Behavior is calm, cooperative, appropriate ag7 for age. Pain: Complains of pain in neck Pain does not radiate. Pain currently is 7 out of 10 on a pain scale. Neuro: Level of Consciousness is awake, alert, obeys commands, Oriented to person, place, time, situation, Appropriate for age Moves all extremities. Cardiovascular: Denies chest pain, Patient's skin is warm and dry. Respiratory: Airway is patent Trachea midline Respiratory effort is even, unlabored, Respiratory pattern is regular, symmetrical. EENT: Reports pain in throat when swallowing. Vital Signs: 10/04 22:26 BP 121 / 69; Pulse 62; Resp 17; Temp 98.6(O); Pulse Ox 100% on R/A; Weight 58.97 kg lg3 (R); Height 5 ft. 7 in. (170.18 cm) (R); Pain 7/10; 10/05 01:13 Pain 3/10; ag7 10/04 22:26 Body Mass Index 20.36 (58.97 kg, 170.18 cm) 3 ED Course: 10/04 20:49 Patient arrived in ED. kz 21:57 Stan Elkins PA is PHCP. cp 21:57 Stan Carter MD is Attending Physician. cp 22:28 Triage completed. lg3 22:28 Arm band placed on left wrist. lg3 22:35 Group A Streptococcus Rapid Sc Sent. lg3 22:35 Strep Sent. lg3 10/05 00:01 Lyly Rosado, RN is Primary Nurse. ag7 00:18 Patient has correct armband on for positive identification. Call light in reach. ag7 00:18 No provider procedures requiring assistance completed. Patient did not have IV access ag7 during this emergency room visit. Administered Medications: 00:13 Drug: Tylenol 1000 mg Route: PO; ag7 01:13 Follow up: Pain 08/17 Adult; Response: No adverse reaction ag7 00:13 Drug: Zofran (Ondansetron) 4 mg Route: PO; ag7 01:13 Follow up: Response: No adverse reaction ag7 Outcome: 00:42 Discharge ordered by MD. cp 01:22 Discharged to home ambulatory. ag7 01:22 Condition: stable 01:22 Discharge instructions given to patient, Instructed on discharge instructions, follow up and referral plans. medication usage, Demonstrated understanding of instructions, follow-up care, medications, Prescriptions given X 2. 01:22 Patient left the ED. ag7 Signatures: Stan Elkins PA PA cp Gibson, Lacie, RN RN lg3 Keara Carpenter kLyly Rangel, RN RN ag7 Corrections: (The following items were deleted from the chart) 10/04 22:30 22:26 Chief complaint: Patient states: body aches with lower back pain and nausea lg3 gradually getting worse. no appetite. all started yesterday lg3 22:55 22:52 COVID-19/FLU A+B+MOL.LAB.BRZ drawn and sent. lg3 EDMS
--- NOTE | 2021-10-05 00:43 | EDPHYS ---
Physician Documentation [facility] Name: Juan Carlos Shepherd Age: 26 yrs Sex: Male : 1995 Arrival Date: 10/04/2021 Time: 20:49 Bed 10 Private MD: ED Physician Stan Carter HPI: 10/04 22:40 This 26 yrs old Male presents to ER via Ambulatory with complaints of Flu cp Symptoms. 22:40 The patient or guardian reports flu symptoms, arthralgias, myalgias, rhinorrhea, slight cp cough, nausea, low back pain, headache. Onset: The symptoms/episode began/occurred this morning. Associated signs and symptoms: Pertinent negatives: chest pain, diarrhea, fever, sore throat, vomiting. Severity of symptoms: in the emergency department the symptoms are unchanged despite home interventions. Historical: - Allergies: 22:28 No Known Allergies; lg3 - Home Meds: 22:28 None [Active]; lg3 - PMHx: 22:28 None; lg3 - PSHx: 22:28 None; lg3 - Immunization history:: Adult Immunizations up to date, Client reports having NOT received the Covid vaccine. - Social history:: Smoking status: Reported history of juuling and/or vaping. Patient uses alcohol, but reports only rare drinking. ROS: 22:45 Constitutional: Positive for body aches, chills, Negative for fever, poor PO intake. cp 22:45 Eyes: Negative for injury, pain, redness, and discharge. cp 22:45 ENT: Negative for drainage from ear(s), ear pain, difficulty swallowing, difficulty handling secretions. 22:45 Neck: Negative for pain with movement, pain at rest, stiffness. 22:45 Cardiovascular: Negative for chest pain. 22:45 Respiratory: Positive for cough, with no reported sputum, Negative for shortness of breath, wheezing. 22:45 Abdomen/GI: Positive for nausea, Negative for abdominal pain, vomiting, diarrhea, constipation. 22:45 Back: Positive for pain at rest, pain with movement. 22:45 : Negative for urinary symptoms. 22:45 Neuro: Positive for headache, Negative for altered mental status, weakness. 22:45 All other systems are negative. Exam: 22:50 Constitutional: The patient appears in no acute distress, alert, awake, cp non-diaphoretic, non-toxic, well developed, well nourished. 22:50 Head/Face: Normocephalic, atraumatic. cp 22:50 Eyes: Periorbital structures: appear normal, Conjunctiva: normal, no exudate, no injection, Sclera: no appreciated abnormality, Lids and lashes: appear normal, bilaterally. 22:50 ENT: External ear(s): are unremarkable, Ear canal(s): are normal, clear, TM's: dullness, bilaterally, Nose: is normal, Mouth: Lips: moist, Oral mucosa: pink and intact, moist, Posterior pharynx: Airway: no evidence of obstruction, patent, Tonsils: no enlargement, no exudate, swelling, is not appreciated, erythema, that is mild, exudate, is not appreciated. 22:50 Neck: ROM/movement: is normal, is supple, without pain, no range of motions limitations, Lymph nodes: no appreciated lymphadenopathy. 22:50 Chest/axilla: Inspection: normal, Palpation: is normal, no crepitus, no tenderness. 22:50 Cardiovascular: Rate: normal, Rhythm: regular. 22:50 Respiratory: the patient does not display signs of respiratory distress, Respirations: normal, no use of accessory muscles, no retractions, labored breathing, is not present, Breath sounds: decreased breath sounds, are not appreciated, rhonchi, are not appreciated, stridor, is not appreciated, + upper airway congestion. 22:50 Abdomen/GI: Inspection: abdomen appears normal, Palpation: abdomen is soft and non-tender, in all quadrants. 22:50 Back: pain, that is mild, of the low back area and mid back area, ROM is normal. 22:50 Neuro: Orientation: to person, place \T\ time. Mentation: is normal, Motor: moves all fours, strength is normal. Vital Signs: 22:26 BP 121 / 69; Pulse 62; Resp 17; Temp 98.6(O); Pulse Ox 100% on R/A; Weight 58.97 kg lg3 (R); Height 5 ft. 7 in. (170.18 cm) (R); Pain 7/10; 10/05 01:13 Pain 3/10; ag7 10/04 22:26 Body Mass Index 20.36 (58.97 kg, 170.18 cm) lg3 MDM: 10/04 23:30 Differential diagnosis: bronchitis, flu, URI, COVID-19, strep throat. cp 23:46 Patient medically screened. [facility] 10/05 00:42 Data reviewed: vital signs, nurses notes, lab test result(s). cp 00:42 Counseling: I had a detailed discussion with the patient and/or guardian regarding: the cp historical points, exam findings, and any diagnostic results supporting the discharge/admit diagnosis, lab results, to return to the emergency department if symptoms worsen or persist or if there are any questions or concerns that arise at home. Response to treatment: the patient's symptoms have mildly improved after treatment, and as a result, I will discharge patient. 10/04 22:30 Order name: Strep; Complete Time: 00:43 lg3 10/04 22:33 Order name: Group A Streptococcus Rapid Sc; Complete Time: 00:39 EDMS 10/05 00:39 Interpretation: Reviewed. 10/04 23:52 Order name: Throat Culture EDMS Administered Medications: 00:13 Drug: Tylenol 1000 mg Route: PO; ag7 01:13 Follow up: Pain 310 Adult; Response: No adverse reaction ag7 00:13 Drug: Zofran (Ondansetron) 4 mg Route: PO; ag7 01:13 Follow up: Response: No adverse reaction ag7 Disposition Summary: 10/05/21 00:42 Discharge Ordered Location: Home cp Problem: new cp Symptoms: have improved cp Condition: Stable cp Diagnosis - Influenza due to identified novel influenza A virus cp Followup: cp - With: Private Physician - When: 2 - 3 days - Reason: Worsening of condition Discharge Instructions: - Discharge Summary Sheet cp - Influenza, Adult cp - Form - Excuse from Work, School, or Physical Activity cp Forms: - Medication Reconciliation Form cp - Thank You Letter cp - Antibiotic Education cp - Prescription Opioid Use cp Prescriptions: - Ibuprofen 600 mg Oral Tablet - take 1 tablet by ORAL route every 8 hours As needed take with food; 30 tablet; cp Refills: 0, Product Selection Permitted - Zofran 4 mg Oral Tablet - take 1 tablet by ORAL route every 12 hours As needed; 20 tablet; Refills: 0, cp Product Selection Permitted - Tamiflu 75 mg Oral Capsule - take 1 tablet by ORAL route every 12 hours for 5 days; 10 tablet; Refills: 0, cp Product Selection Permitted Signatures: Dispatcher [employer] EDMS Stan Carter MD MD cha Page, Corey, PA PA Joelle Moore, RN RN lg3 Lyly Rosado RN RN ag7 Corrections: (The following items were deleted from the chart) 10/04 22:55 22:36 COVID-19/FLU A+[id number] ordered. EDMS EDMS
[2021-10-05 02:36] VITALS: BP 121/69; TEMP 98.6; O2SAT 100
== END 2021-10-05 01:22 | disposition home or self-care (01) ==
LOC: ER 20:47
DX: J10.1 Influenza due to other identified influenza virus with other respiratory manifestations (principal); Z20.822 Contact with and (suspected) exposure to COVID-19
CPT/HCPCS: 0240U; 87070; 87081; 99283

== ENCOUNTER 2022-05-03 13:08 | Emergency (ER) | payer OTHER ==
--- OUTSIDE RECORDS SUMMARY | 2022-05-03 13:12 | XMS REPORT | Continuity of Care Document ---
:1995 Author Organization [facility] t Address [address] [place] [address] Care Team Providers Name Role Phone Roxanna Colón Attending Clinician Payers Payer Name Policy Type Policy Number Effective Date Expiration Date S ource MEDICAID OF [place] [id number] 2013 00:00:00 Problems Condition Condition Condition Status [...] Active Univers [employer]ER[employer] Class ity of [facility] Social History Social Habit Start Date Stop Date Quantity Comments Source Sex Assigned At [facility] Exposure to Not sure [facility] SARS-CoV-2 (event) Medica l Branch Tobacco use and 2013-07-21 2013-07-21 Never used [facility] exposure 00:00:00 00:00:00 [facility] Alcohol intake 2013-07-21 2013-07-21 [facility] 00:00:00 00:00:00 [facility] History of tobacco 2013-05-21 Smoker [facility] use 00:00:00 [facility] Smoking Status Start Date Stop Date Source Former smoker 2013-07-21 00:00:00 2013-07-21 00:00:[address] [facility] Medications Ordered Filled Start Stop Current Ordering Indication Dosage Frequency Signature Comments Components Source Medication Medication Date Date Medication? Clinician (SIG) Name Name NaCl 0.9% No 1000mL at 999 Uni vers (NS) bolus 07-01 mL/hr, ity of infusion 00:45: 00:37 1,000 mL, Moris as 1,000 mL 00 :00 [facility], [place] ONCE, 1 dose, Shana 06/30/20 at 1845, STAT ibuprofen 2020- No 400mg 400 mg, Uni vers (IBU) 07-01 Oral, ity of tablet 400 00:30: 23:31 ONCE, 1 Moris as mg 00 :00 dose, [facility] 06/30/20 at [place] 1830, DEEPAK methocarbam 2020- No 500mg 500 mg, U nivers oL 07-01 Oral, ity of (ROBAXIN) 00:30: 23:31 ONCE, 1 [place] tablet 500 00 :00 dose, [facility] everadro mg 06/30/20 at Branch 1830, Routine ondansetron No 4mg 4 mg, Univ ers (ZOFRAN-ODT 07-01 Oral, ity of ) 00:00: 23:09 ONCE, 1 [place] disintegrat 00 :00 dose, Shana Med ical ing tablet 06/30/20 at [facility] 4 mg 1800, Routine ondansetron Yes [id number] 4mg Take 1 Univers (ZOFRAN 1-21 tablet by ity of ODT) 4 mg 00:00: mouth [place] disintegrat 00 every 8 Medic al ing tablet (eight) Branch hours as needed for Nausea and Vomiting (N/V). methocarbam Yes [id number] 500mg Take 1 Univers oL 500 mg 1-21 tablet by ity o f tablet 00:00: mouth 4 [place] 00 (four) Medical times Branch daily as needed for Pain (scale 4-6). Vital Signs Vital Name Observation Time Observation Value Comments Source Systolic blood 2020-07-01 01:00:00 122 mm[Hg] Univer sity of pressure [place] [facility] Diastolic blood 2020-07-01 01:00:00 84 mm[Hg] Unive rsity of pressure [place] [facility] Heart rate 2020-07-01 01:00:00 77 /min Universi ty of [facility] Body temperature 2020-07-01 01:00:00 37.44 Mikala Univ ersity of [place] [facility] Respiratory rate 2020-07-01 01:00:00 18 /min Univ ersity of [facility] Branch Oxygen saturation in 2020-07-01 01:00:00 99 /min University of Arterial blood by [facility] Pulse oximetry Branch Body weight 2020-06-30 21:08:00 58.968 kg Universi ty of [facility] Branch Systolic blood 2020-07-01 01:00:00 122 mm[Hg] Univer sity of pressure [facility] Branch Diastolic blood 2020-07-01 01:00:00 84 mm[Hg] Unive rsity of pressure [place] [facility] Heart rate 2020-07-01 01:00:00 77 /min Universi ty of [facility] Body temperature 2020-07-01 01:00:00 37.44 Mikala Univ ersity of [facility] Branch Respiratory rate 2020-07-01 01:00:00 18 /min Univ ersity of [facility] Branch Oxygen saturation in 2020-07-01 01:00:00 99 /min University of Arterial blood by [facility] Pulse oximetry Branch Body weight 2020-06-30 21:08:[address] [facility] Procedures Procedure Date / Time Performed Performing Clinician [facility] e NOTICE OF PRIVACY 2020-06-30 20:58:54 Doctor Unassigned, No [facility] [place] PRACTICES Name Medical Branch Encounters Start End Encounter Admission Attending Care Care Encounter Source Date/Time Date/Time Type Type Clinicians Facility Department ID 2020-06-30 2020-06-30 Emergency SAHRA Villegas [id number] [facility] 15:10:00 19:10:00 Roxanna Champion [id number] i ty [place] [id number] [facility] [id number] [facility] 084 Branch 2020-06-30 2020-06-30 Emergency SAHRA Villegas [id number] 15:10:00 19:10:00 Roxanna Champion [id number] [place] [id number] [place] [id number] 2020-06-30 2020-06-30 Emergency X [facility] [[email or web address] ERT [id number] Univers 15:10:00 15:10:00 [facility] Results Test Description Test Time Test Comments Results Result Comments Source SARS-CoV-2 (COVID-19), RT-PCR/TMA 2021-07-06 08:05:27 Test Item Value Reference Range Interpretation Comme nts SARS-CoV-2 INTERPRETATION POSITIVE SEE NOTE A S ARS-CoV-2 RNA DETECTEDPositive (test code = 25977) results are indicative of the presence of JOSE GUADALUPE S-CoV-2 RNA;clinical co rrelation with patient history and other diagnosticinfor mation is necessary to de termine patient infection statu s.Positive results do not rule out bacterial infection or co -infectionwith other viruses. Positive and negative predic tive values oftesting are h ighly dependent on prevalence. SOURCE (test code = 01975) NASOPHARYNGEAL Note: Methodology is Julieta Dustin Real-Time RT-PC R. The expected result or refer ence range is NEGATIVE (Not D etected). For more information reg arding COVID-19 testing to incl ude clinicalinforma tion, methodology detail, intende d use, FDA authorization a ndrecommended fact sheets for alma rosa ents or healthcare providers, see NewTest Announcement: S ARS-CoV-2 (COVID-19) by N AAT at URL below (note,fact shee ts are provided by method given in report:https:// www.[employer]/cl inicians/client -communications/ Alternatively, see downloadable PDF fact sheet at:https://www. [employer]/COVID- 19-RT-PCR UNLES S OTHERWISE INDICATED, ALL TESTING PERFORMED AT[facility]INICAL PATH [facility]LOG[facility] LABORATORIES, I [address]. [address] [place] [address] 4 CREDIT CHARGE AUTHORIZER: RUDI OTOOLE M.D. CLIA NUMBER [id number] CAP ACCREDITATION N O. [id number] SARS-CoV-2 (COVID-19), RT-PCR/[id number] 14:21:21 Test Item Value Reference Interpretation Comments Range SARS-CoV-2 POSITIVE SEE NOTE A SARS-CoV-2 RNA INTERPRETATION DETECTEDPosit jass results (test code = are indicative of the 16083) presence of JOSE GUADALUPE S-CoV-2 RNA;clinical co rrelation with patient hi story and other diagnosticinfor mation is necessary to de termine patient infecti on status.Positive results do not rule out bacterial infec tion or co-infectionwit h other viruses. Positi ve and negative predic tive values oftestin g are highly dependen t on prevalence. SOURCE (test code NASOPHARYNGEAL Note: M ethodology is = 53291) Julieta Dustin [place] l-Time RT-PCR. The exp ected result or refer ence range is NEGATI VE (Not Detected). For more information reg arding COVID-19 testin g to include clinicalinforma tion, methodology det ail, intended use, F DA authorization andrecommended fact sheets for alma rosa ents or healthcare prov iders, see [facility] Announcement: S ARS-CoV-2 (COVID-19) by N AAT at URL below (note ,fact sheets are prov ided by method given in report:https:// www.[employer].com/clinicia ns/client -communications / Alternatively, see downloadable PD F fact sheet at:https://www. SendMeHome.com.c om/NQGPC-76-FW- PCR UNLESS OTHERWIS E INDICATED, ALL TESTING PERFORMED [facility] [address] [place] [address] 4 LABORATORY DIRE CTOR: RUDI ANG M.D. CLIA NUMBER [id number] [place]. [id number]
[2022-05-03] MEDS ORDERED: Ringers Lactate 1,000 ML IV ONE (13:46)
[2022-05-03] MEDS ORDERED: ONDANSETRON 4 MG/2 ML VIAL ONE (13:46)
[2022-05-03 14:10] LABS: Absolute Lymphocytes (CBC) 1.3 K/uL (0.7-4.9); Hematocrit 46.1 % (39.6-49.0); Lymphocytes % 7.1 % (15.3-44.8); MCV 96.2 fL (80-100); MPV 7.5 fL (7.6-11.3)
[2022-05-03 14:29] LABS: Albumin 5.2 g/dL (3.4-5.0); Bilirubin Total 0.6 mg/dL (0.2-1.0); Potassium 4.3 mmol/L (3.5-5.1); Protein, Total 8.7 g/dL (6.4-8.2)
--- NOTE | 2022-05-03 14:58 | ER ---
Nurse's Notes [facility] Name: Juan Carlos Shepherd Age: 26 yrs Sex: Male : 1995 Arrival Date: 05/03/2022 Time: 13:10 Bed 13 [facility] MD: Diagnosis: Vomiting;Nausea Presentation: 05/03 13:26 Chief complaint: Patient states: Vomiting that began this morning. Pt reports he drank ss alcohol last night and feels hungover, but is concerned because he has some blood in his vomit. Coronavirus screen: Client denies travel out of the [place] in the last 14 days. Ebola Screen: Patient denies exposure to infectious person. Patient denies travel to an Ebola-affected area in the 21 days before illness onset. Initial Sepsis Screen: Does the patient meet any 2 criteria? No. Patient's initial sepsis screen is negative. Does the patient have a suspected source of infection? No. Patient's initial sepsis screen is negative. Risk Assessment: Do you want to hurt yourself or someone else? Patient reports no desire to harm self or others. Onset of symptoms was May 03, 2022. 13:26 Method Of Arrival: Ambulatory ss 13:26 Acuity: VINNY 3 ss Historical: - Allergies: 13:30 No Known Allergies; ss 13:28 No Known Allergies; ss - Home Meds: 13:30 None [Active]; ss 13:28 None [Active]; ss - PMHx: 13:30 None; ss 13:28 None; ss - PSHx: 13:30 None; ss 13:28 None; ss - Immunization history:: Client reports having NOT received the Covid vaccine. - Social history:: Smoking status: Patient reports the use of cigarette tobacco products, denies chronic smoking, but will smoke occasionally, chewing tobacco. Screenin:50 Abuse screen: Denies threats or abuse. Nutritional screening: No deficits noted. vg1 Tuberculosis screening: No symptoms or risk factors identified. Fall Risk No fall in past 12 months (0 pts). No secondary diagnosis (0 pts). IV access (20 points). Ambulatory Aid- None/Bed Rest/Nurse Assist (0 pts). Gait- Normal/Bed Rest/Wheelchair (0 pts) Mental Status- Oriented to own ability (0 pts). Total Valentin Fall Scale indicates No Risk (0-24 pts). Assessment: 13:50 General: Appears in no apparent distress. uncomfortable, Behavior is cooperative. Pain: vg1 Denies pain. Neuro: Level of Consciousness is awake, alert, obeys commands, Oriented to person, place, time, situation. Cardiovascular: Patient's skin is warm and dry. Respiratory: Airway is patent Respiratory effort is even, unlabored. GI: Abdomen is flat, Bowel sounds present X 4 quads. Abdomen is tender to palpation in right upper quadrant and left upper quadrant Reports nausea, vomiting. : No signs and/or symptoms were reported regarding the genitourinary system. EENT: No signs and/or symptoms were reported regarding the EENT system. Derm: Skin is pink, warm \T\ dry. Musculoskeletal: Circulation, motion, and sensation intact. 15:35 Reassessment: Patient appears in no apparent distress at this time. Patient and/or vg1 family updated on plan of care and expected duration. Pain level reassessed. Patient is alert, oriented x 3, equal unlabored respirations, skin warm/dry/pink. Patient denies pain at this time. Patient states feeling better. Vital Signs: 13:26 BP 113 / 55; Pulse 81; Resp 16; Temp 97.0; Pulse Ox 99% on R/A; Height 5 ft. 7 in. em6 (170.18 cm); Pain 0/10; 14:37 Weight 69.4 kg (M); em6 15:35 BP 112 / 68; Pulse 67; Resp 15; Pulse Ox 98% on R/A; vg1 14:37 Body Mass Index 23.96 (69.40 kg, 170.18 cm) em6 ED Course: 13:10 Patient arrived in ED. mr 13:15 Baljinder Tran DO is Attending Physician. ms3 13:27 Meghan Leiws, RN is Primary Nurse. vg1 13:28 Triage completed. ss 13:30 Arm band placed on right wrist. ss 13:50 Patient has correct armband on for positive identification. Placed in gown. Bed in low vg1 position. Call light in reach. Side rails up X 1. 13:50 No provider procedures requiring assistance completed. vg1 13:55 Initial lab(s) drawn, by me, sent to lab. Inserted saline lock: 20 gauge in left vg1 antecubital area, using aseptic technique. Blood collected. 14:57 Jose Carlos Rodriges DO is Referral Physician. ms3 15:36 IV discontinued, intact, bleeding controlled, No redness/swelling at site. Pressure vg1 dressing applied. Administered Medications: 13:57 Drug: Lactated Ringers Solution 1000 ml Route: IV; Rate: 1000 bolus; Site: left vg1 antecubital; 15:37 Follow up: IV Status: Completed infusion; IV Intake: 1000ml vg1 13:57 Drug: Zofran (Ondansetron) 4 mg Route: IVP; Site: left antecubital; vg1 15:36 Follow up: Response: No adverse reaction; Nausea is decreased vg1 Medication: 13:50 VIS not applicable for this client. vg1 Intake: 15:37 IV: 1000ml; Total: 1000ml. vg1 Outcome: 14:58 Discharge ordered by MD. ms3 15:36 Discharged to home ambulatory, with family. vg1 15:36 Condition: good 15:36 Discharge instructions given to patient, Instructed on discharge instructions, follow up and referral plans. medication usage, Demonstrated understanding of instructions, follow-up care, medications, Prescriptions given X 1. 15:36 Patient left the ED. vg1 Signatures: Omar Rocio mr Juliana Burton, RN RN Meghan Goins RN RN vg1 Baljinder Tran DO DO ms3 Mili Gupta, RN RN em6 Corrections: (The following items were deleted from the chart) 14:38 13:26 BP 113 / 55; Pulse 81bpm; Resp 16bpm; Pulse Ox 99% RA; Temp 97.0F; 49.9 kg; em6 Height 5 ft. 7 in.; BMI: 17.2; Pain 0/10; ss
--- NOTE | 2022-05-03 14:58 | EDPHYS ---
Physician Documentation [facility] Name: Juan Carlos Shepherd Age: 26 yrs Sex: Male : 1995 Arrival Date: 05/03/2022 Time: 13:10 Bed 13 Private MD: ED Physician Baljinder Tran Historical: - Allergies: 05/03 13:30 No Known Allergies; ss 13:28 No Known Allergies; ss - Home Meds: 13:30 None [Active]; ss 13:28 None [Active]; ss - PMHx: 13:30 None; ss 13:28 None; ss - PSHx: 13:30 None; ss 13:28 None; ss - Immunization history:: Client reports having NOT received the Covid vaccine. - Social history:: Smoking status: Patient reports the use of cigarette tobacco products, denies chronic smoking, but will smoke occasionally, chewing tobacco. Vital Signs: 13:26 BP 113 / 55; Pulse 81; Resp 16; Temp 97.0; Pulse Ox 99% on R/A; Height 5 ft. 7 in. em6 (170.18 cm); Pain 0/10; 14:37 Weight 69.4 kg (M); em6 15:35 BP 112 / 68; Pulse 67; Resp 15; Pulse Ox 98% on R/A; vg1 14:37 Body Mass Index 23.96 (69.40 kg, 170.18 cm) em6 MDM: 13:43 Patient medically screened. ms3 05/03 13:43 Order name: CBC with Diff; Complete Time: 14:30 ms3 05/03 13:43 Order name: CMP; Complete Time: 14:30 ms3 Administered Medications: 13:57 Drug: Lactated Ringers Solution 1000 ml Route: IV; Rate: 1000 bolus; Site: left vg1 antecubital; 15:37 Follow up: IV Status: Completed infusion; IV Intake: 1000ml vg1 13:57 Drug: Zofran (Ondansetron) 4 mg Route: IVP; Site: left antecubital; vg1 15:36 Follow up: Response: No adverse reaction; Nausea is decreased vg1 Disposition Summary: 05/03/22 14:58 Discharge Ordered Location: Home ms3 Condition: Stable ms3 Diagnosis - Vomiting ms3 - Nausea ms3 Followup: ms3 - With: Jose Carlos Rordiges DO - When: 2 - 3 days - Reason: Recheck today's complaints Discharge Instructions: - Discharge Summary Sheet ms3 - Nausea and Vomiting, Adult ms3 Forms: - Medication Reconciliation Form ms3 - Thank You Letter ms3 - Antibiotic Education ms3 - Prescription Opioid Use ms3 Prescriptions: - ondansetron 4 mg Oral tablet,disintegrating - take 1 tablet by ORAL route every 8 hours for 2 days; 15 tablet; Refills: 0, ms3 Product Selection Permitted Signatures: Dispatcher [employer] Juliana De Los Santos RN RN Meghan Goins RN RN vg1 Baljinder Tran DO DO ms3
[2022-05-03 16:02] VITALS: TEMP 97
[2022-05-03 16:03] VITALS: BP 112/68; O2SAT 98
== END 2022-05-03 15:36 | disposition home or self-care (01) ==
LOC: ER 13:08
DX: R11.2 Nausea with vomiting, unspecified (principal); F17.210 Nicotine dependence, cigarettes, uncomplicated
CPT/HCPCS: 96361; 85025; 36415; 80053; 96374; 99284; J7120; J2405

== ENCOUNTER 2023-04-22 20:07 | Emergency (ER) | payer SELFPAY ==
--- OUTSIDE RECORDS SUMMARY | 2023-04-22 20:10 | XMS REPORT | Continuity of Care Document ---
:1995 Author Organization [facility] t Address [address] [place] [address] Care Team Providers Name Role Phone Roxanna Colón Attending Clinician Payers Payer Name Policy Type Policy Number Effective Date Expiration Date S ource [place]ID [place] [id number] 2013 00:00:00 Problems Condition Condition Condition Status [...] Active Univers [employer] Class ity of S [facility] Social History Social Habit Start Date Stop Date Quantity Comments Source Sex Assigned At [facility] Exposure to Not sure [facility] SARS-CoV-2 (event) Medica l Branch Tobacco use and 2013-07-21 2013-07-21 Never used [facility] exposure 00:00:00 00:00:00 [facility] Alcohol intake 2013-07-21 2013-07-21 [facility] 00:00:00 00:00:00 [facility] History of tobacco 2013-05-21 Smoker [facility] use 00:00:00 [facility] Smoking Status Start Date Stop Date Source Former smoker 2013-07-21 00:00:00 2013-07-21 00:00:00 [facility] Medications Ordered Filled Start Stop Current Ordering Indication Dosage Frequency Signature Comments Components Source Medication Medication Date Date Medication? Clinician (SIG) Name Name NaCl 0.9% No 1000mL at 999 Uni vers (NS) bolus 07-01 mL/hr, ity of infusion 00:45: 00:37 1,000 mL, Moris as 1,000 mL 00 :00 [facility], [place] ONCE, 1 dose, Shana 06/30/20 at 1845, STAT ibuprofen 2020- No 400mg 400 mg, Uni vers (IBU) 07-01 Oral, ity of tablet 400 00:30: 23:31 ONCE, 1 Moris as mg 00 :00 dose, [facility] 06/30/20 at [place] 1830, DEEPAK methocarbam 2020- No 500mg 500 mg, U nivers oL 07-01 Oral, ity of (ROBAXIN) 00:30: 23:31 ONCE, 1 [place] tablet 500 [place] :00 dose, [facility] everardo mg 06/30/20 at [place] 1830, Routine ondansetron No 4mg 4 mg, Univ ers (ZOFRAN-ODT 07-01 Oral, ity of ) 00:00: 23:09 ONCE, 1 [place] disintegrat 00 :00 dose, Shana Med ical ing tablet 06/30/20 at [facility] 4 mg 1800, Routine ondansetron Yes [id number] 4mg Take 1 Univers (ZOFRAN 1-21 tablet by ity of ODT) 4 mg 00:00: mouth [place] disintegrat 00 every 8 Medic al ing tablet (eight) Branch hours as needed for Nausea and Vomiting (N/V). methocarbam Yes [id number] 500mg Take 1 Univers oL 500 mg 1-21 tablet by ity o f tablet 00:00: mouth 4 [place] 00 (four) Medical times Branch daily as needed for Pain (scale 4-6). Vital Signs Vital Name Observation Time Observation Value Comments Source Systolic blood 2020-07-01 01:00:00 122 mm[Hg] Univer sity of pressure [place] [facility] Diastolic blood 2020-07-01 01:00:00 84 mm[Hg] Unive rsity of pressure [facility] Heart rate 2020-07-01 01:00:00 77 /min Universi ty of [facility] Body temperature 2020-07-01 01:00:00 37.44 Mikala Univ ersity of [facility] Respiratory rate 2020-07-01 01:00:00 18 /min Univ ersity of [facility] Oxygen saturation in 2020-07-01 01:00:00 99 /min University of Arterial blood by [facility] [place] Pulse oximetry Branch Body weight 2020-06-30 21:08:00 58.968 kg Universi ty of [facility] Systolic blood 2020-07-01 01:00:00 122 mm[Hg] Univer sity of pressure [facility] Diastolic blood 2020-07-01 01:00:00 84 mm[Hg] Unive rsity of pressure [facility] Heart rate 2020-07-01 01:00:00 77 /min Universi ty of [facility] Body temperature 2020-07-01 01:00:00 37.44 Mikala Univ ersity of [facility] Respiratory rate 2020-07-01 01:00:00 18 /min Univ ersity of [facility] Oxygen saturation in 2020-07-01 01:00:00 99 /min University of Arterial blood by [facility] [place] Pulse oximetry Branch Body weight 2020-06-30 21:08:00 58.968 kg Universi ty of [facility] Procedures Procedure Date / Time Performed Performing Clinician Sour e NOTICE OF PRIVACY 2020-06-30 20:58:54 Doctor Unassigned, [facility] Branch Encounters Start End Encounter Admission Attending Care Care Encounter Source Date/Time Date/Time Type Type Clinicians Facility Department ID 2020-06-30 2020-06-30 Emergency SAHRA Villegas [id number] [facility] 15:10:00 19:10:00 Roxanna Champion [id number] i ty [place] [id number] [facility] [id number] [facility] 084 Branch 2020-06-30 2020-06-30 Emergency SAHRA Villegas [id number] 15:10:00 19:10:00 Roxanna Champion [id number] [place] [id number] [place] [id number] 2020-06-30 2020-06-30 Emergency X [facility] ERT [id number] Univers 15:10:00 15:10:00 [facility] Results Test Description Test Time Test Comments Results Result Comments Source SARS-CoV-2 (COVID-19), RT-PCR/TMA 2021-07-06 08:05:27 Test Item Value Reference Range Interpretation Comme nts SARS-CoV-2 INTERPRETATION POSITIVE SEE NOTE A S ARS-CoV-2 RNA DETECTEDPositive (test code = 41081) results are indicative of the presence of JOSE GUADALUPE S-CoV-2 RNA;clinical co rrelation with patient history and other diagnosticinfor mation is necessary to de termine patient infection statu s.Positive results do not rule out bacterial infection or co -infectionwith other viruses. Positive and negative predic tive values oftesting are h ighly dependent on prevalence. SOURCE (test code = 28613) NASOPHARYNGEAL Note: Methodology is [employer] Real-Time RT-PC R. The expected result or [...] are provided by method given in report:https:// www.[employer]/cl inicians/client -communications/ Alternatively, see downloadable PDF fact sheet at:https://www. [employer]/COVID- 19-RT-PCR UNLES S OTHERWISE INDICATED, ALL TESTING PERFORMED [facility], [place]. [address] [place] [address] 4 FRONT OFFICE MANAGER: RUDI OTOOLE M.D. CLIA NUMBER [id number] CAP ACCREDITATION N O. [id number] SARS-CoV-2 (COVID-19), RT-PCR/[id number] 14:21:21 Test Item Value Reference Interpretation Comments Range SARS-CoV-2 POSITIVE SEE NOTE A SARS-CoV-2 RNA INTERPRETATION DETECTEDPosit jass results (test code = are indicative of the [address]) presence of JOSE GUADALUPE S-CoV-2 RNA;clinical co rrelation with patient hi story and other diagnosticinfor mation is necessary to de termine patient infecti on status.Positive results do not rule out bacterial infec tion or co-infectionwit h other viruses. Positi ve and negative predic tive values oftestin g are highly dependen t on prevalence. SOURCE (test code NASOPHARYNGEAL Note: M ethodology is = 66880) Julieta Dustin Trice l-Time RT-PCR. The exp ected result or [...] prov ided by method given in report:https:// www.[employer].com/clinicia ns/client -communications / Alternatively, see downloadable PD F fact sheet at:https://www. [employer].c om/RMICB-81-YM- PCR UNLESS OTHERWIS E INDICATED, ALL TESTING PERFORMED [facility] [address] [place] [address] 4 LABORATORY DIRE CTOR: RUDI ANG M.D. CLIA NUMBER [id number] [place] [id number]
[2023-04-22] MEDS ORDERED: FLUORESCEIN SODIUM 1 MG/WRAP ONE (21:39)
[2023-04-22] MEDS ORDERED: NA CHLORIDE 0.9% 500 ML ONE (21:40)
--- NOTE | 2023-04-22 21:41 | ER ---
Nurse's Notes [facility] Name: Juan Carlos Shepherd Age: 27 yrs Sex: Male : 1995 Arrival Date: 04/22/2023 Time: 20:07 Bed 11 Private MD: Diagnosis: Injury of conjunctiva and corneal abrasion without foreign body Presentation: 04/22 21:46 Chief complaint: Patient states: foreign body in left eye today. Pt states that he does cm10 not know if it is fiberglass or a piece of metal. Pt reports blurred vision to left eye. Coronavirus screen: Vaccine status: Patient reports being unvaccinated. Client denies travel out of the [place] in the last 14 days. Ebola Screen: Patient denies travel to an Ebola-affected area in the 21 days before illness onset. No symptoms or risks identified at this time. Initial Sepsis Screen: Does the patient meet any 2 criteria? No. Patient's initial sepsis screen is negative. Does the patient have a suspected source of infection? No. Patient's initial sepsis screen is negative. Risk Assessment: Do you want to hurt yourself or someone else? Patient reports no desire to harm self or others. Onset of symptoms was April 22, 2023. 21:46 Method Of Arrival: Ambulatory cm10 21:46 Acuity: VINNY 3 cm10 Triage Assessment: 21:33 General: Appears in no apparent distress. comfortable, Behavior is calm, cooperative. cm10 Pain: Complains of pain in left eye. EENT: Eyes are tearing on left eye Reports blurred vision in left eye. Neuro: No deficits noted. Vidal Agitation-Sedation Scale (RASS): 0 - Alert and Calm Level of Consciousness is awake, alert, obeys commands, Oriented to person, place, time, situation. Cardiovascular: No deficits noted. Patient's skin is warm and dry. Respiratory: No deficits noted. Airway is patent Respiratory effort is even, unlabored, Respiratory pattern is regular, symmetrical. GI: No deficits noted. No signs and/or symptoms were reported involving the gastrointestinal system. : No deficits noted. No signs and/or symptoms were reported regarding the genitourinary system. Derm: No deficits noted. No signs and/or symptoms reported regarding the dermatologic system. Musculoskeletal: No deficits noted. No signs and/or symptoms reported regarding the musculoskeletal system. Range of motion: intact in all extremities. Historical: - Allergies: 21:42 No Known Allergies; cm10 - Home Meds: 21:42 None [Active]; cm10 - PSHx: 21:42 None; cm10 - Immunization history:: Adult Immunizations unknown. - Social history:: Smoking status: unknown. Screenin:34 [facility] ED Fall Risk Assessment (Adult) History of falling in the last 3 months, cm10 including since admission No falls in past 3 months (0 pts) Confusion or Disorientation No (0 pts) Intoxicated or Sedated No (0 pts) Impaired Gait No (0 pts) Mobility Assist Device Used No (0 pt) Altered Elimination No (0 pt) Score/Fall Risk Level 0 - 2 = Low Risk Oriented to surroundings, Maintained a safe environment, Hourly rounding (assess needs \T\ fall precautionary measures) done. Abuse screen: Denies threats or abuse. Denies injuries from another. Nutritional screening: No deficits noted. Tuberculosis screening: No symptoms or risk factors identified. Assessment: 22:02 Reassessment: Patient appears in no apparent distress at this time. Patient is alert, cm10 oriented x 3, equal unlabored respirations, skin warm/dry/pink. Patient states feeling better. Patient states symptoms have improved. Vital Signs: 21:42 Weight 58.97 kg; Height 5 ft. 6 in. ; cm10 21:46 BP 116 / 64; Pulse 68; Resp 18; Temp 98.1; Pulse Ox 100% ; Pain 10/10; cm10 21:42 Body Mass Index 20.98 (58.97 kg, 167.64 cm) cm10 21:46 Pain Scale: Adult cm10 Visual Acuity: 21:32 Left Eye Visual acuity 20/25, ; Right Eye Visual acuity 20/25, ; Both Eyes Visual cm10 acuity 20/20; Without Lenses; ED Course: 20:09 Patient arrived in ED. [id number] 20:40 Sukumar Rodriges MD is Attending Physician. sp3 21:34 Patient has correct armband on for positive identification. Bed in low position. Call cm10 light in reach. Provided Education on: ER process and procedures. . Cardiac monitoring not applicable on this patient. 21:40 Stanton Srinivasan MD is Referral Physician. sp3 21:48 Triage completed. cm10 21:48 Arm band placed on Patient placed in an exam room, on a stretcher. cm10 21:48 Patient did not have IV access during this emergency room visit. Eye irrigation of left cm10 eye w/ Jose lens IV tubing with 500 ml normal saline, Patient tolerated well. 21:48 No provider procedures requiring assistance completed. cm10 Administered Medications: 21:49 Drug: Tetracaine Ophthalmic Drops 0.5 % 1 drops Ophthalmic once Route: Ophthalmic; cm10 Site: left eye; 21:59 Drug: Acetaminophen PO 650 mg PO once Route: PO; cm10 22:02 Follow up: Response: No adverse reaction cm10 Medication: 21:34 VIS not applicable for this client. cm10 Outcome: 21:40 Discharge ordered by MD. sheffield 22:02 Discharged to home ambulatory, with significant other, cm10 22:02 Condition: good 22:02 Discharge instructions given to patient, Instructed on discharge instructions, follow up and referral plans. medication usage, Demonstrated understanding of instructions, follow-up care, medications, Prescriptions given X 1, 22:02 Patient left the ED. cm10 Signatures: Sukumar Rodriges MD MD sp3 Clare Mckinney Clarissa, RN RN cm10
--- NOTE | 2023-04-22 21:41 | EDPHYS ---
Physician Documentation [facility] Name: Juan Carlos Shepherd Age: 27 yrs Sex: Male : 1995 Arrival Date: 04/22/2023 Time: 20:07 Bed 11 Private MD: ED Physician Sukumar Rodriges HPI: 04/22 21:14 This 27 yrs old Male presents to ER via Unassigned with complaints of Foreign sp3 Body In Eye. 21:14 27-year-old male with no past medical history and no corrective lenses or contact sp3 lenses now presents to the ED with chief complaint left-sided eye pain and burning and possible foreign body presentation. 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 He denies any change in visual acuity, double vision, headache, fever, other neurological symptoms at this time. Remainder of ROS is negative.. Historical: - Allergies: 21:42 No Known Allergies; cm10 - Home Meds: 21:42 None [Active]; cm10 - PSHx: 21:42 None; cm10 - Immunization history:: Adult Immunizations unknown. - Social history:: Smoking status: unknown. ROS: 21:15 Constitutional: Negative for fever, chills, and weight loss, ENT: Negative for injury, sp3 pain, and discharge, Neck: Negative for injury, pain, and swelling, Cardiovascular: Negative for chest pain, palpitations, and edema, Respiratory: Negative for shortness of breath, cough, wheezing, and pleuritic chest pain, Abdomen/GI: Negative for abdominal pain, nausea, vomiting, diarrhea, and constipation, Back: Negative for injury and pain, MS/Extremity: Negative for injury and deformity, Skin: Negative for injury, rash, and discoloration, Neuro: Negative for headache, weakness, numbness, tingling, and seizure, Psych: Negative for depression, anxiety, suicide ideation, homicidal ideation, and hallucinations, Allergy/Immunology: Negative for hives, rash, and allergies, Endocrine: Negative for neck swelling, polydipsia, polyuria, polyphagia, and marked weight changes, Hematologic/Lymphatic: Negative for swollen nodes, abnormal bleeding, and unusual bruising, Exam: 21:15 Constitutional: This is a well developed, well nourished patient who is awake, alert, sp3 and in no acute distress. Head/Face: Normocephalic, atraumatic. ENT: Nares patent. No nasal discharge, no septal abnormalities noted. External auditory canals are clear. Oropharynx with no redness, swelling, or masses, exudates, or evidence of obstruction, uvula midline. Mucous membranes moist. Neck: Trachea midline, no thyromegaly or masses palpated, and no cervical lymphadenopathy. Supple, full range of motion without nuchal rigidity, or vertebral point tenderness. No Meningismus. Chest/axilla: Normal chest wall appearance and motion. Nontender with no deformity. No lesions are appreciated. Cardiovascular: Regular rate and rhythm with a normal S1 and S2. No gallops, murmurs, or rubs. Normal PMI, no JVD. No pulse deficits. Respiratory: Lungs have equal breath sounds bilaterally, clear to auscultation and percussion. No rales, rhonchi or wheezes noted. No increased work of breathing, no retractions or nasal flaring. Abdomen/GI: Soft, non-tender, with normal bowel sounds. No distension or tympany. No guarding or rebound. No evidence of tenderness throughout. Back: No spinal tenderness. No costovertebral tenderness. Full range of motion. Skin: Warm, dry with normal turgor. Normal color with no rashes, no lesions, and no evidence of cellulitis. MS/ Extremity: Pulses equal, no cyanosis. Neurovascular intact. Full, normal range of motion. Neuro: Awake and alert, GCS 15, oriented to person, place, time, and situation. Cranial nerves II-XII grossly intact. Motor strength 5/5 in all extremities. Sensory grossly intact. Cerebellar exam normal. Normal gait. Psych: Awake, alert, with orientation to person, place and time. Behavior, mood, and affect are within normal limits. 21:15 Eyes: Fluorescein stain on the left eye demonstrates mild corneal abrasion. No rust rings or foreign body noted.. Vital Signs: 21:42 Weight 58.97 kg; Height 5 ft. 6 in. ; cm10 21:46 BP 116 / 64; Pulse 68; Resp 18; Temp 98.1; Pulse Ox 100% ; Pain 10/10; cm10 21:42 Body Mass Index 20.98 (58.97 kg, 167.64 cm) cm10 21:46 Pain Scale: Adult cm10 Visual Acuity: 21:32 Left Eye Visual acuity 20/25, ; Right Eye Visual acuity 20/25, ; Both Eyes Visual cm10 acuity 20/20; Without Lenses; MDM: 21:10 Patient medically screened. sp3 21:15 Data reviewed: vital signs, nurses notes. ED course: 27-year-old with corneal abrasion sp3 to left eye. Will flush with Jose lens normal saline 500 mL and anesthetized with tetracaine prior to that. Discharge patient home on topical antibiotic and follow-up with eyeglass lens generator. I am not suspecting globe injury, metal introduction/frustrating, hyphema, acute angle glaucoma, vision loss, or any other critical ophthalmic pathology at this time.. 04/22 21:12 Order name: Misc. Order: Jose lens 500 mL NS to left eye; Complete Time: 21:32 sp3 04/22 21:12 Order name: Eye Tray; Complete Time: 21:32 sp3 04/22 21:12 Order name: Fluoresene Opth strip; Complete Time: 21:32 sp3 04/22 21:12 Order name: Visual Acuity; Complete Time: 21:32 sp3 Administered Medications: 21:49 Drug: Tetracaine Ophthalmic Drops 0.5 % 1 drops Ophthalmic once Route: Ophthalmic; cm10 Site: left eye; 21:59 Drug: Acetaminophen PO 650 mg PO once Route: PO; cm10 22:02 Follow up: Response: No adverse reaction cm10 Disposition Summary: 04/22/23 21:40 Discharge Ordered Notes: Location: Home sp3 Condition: Stable sp3 Diagnosis - Injury of conjunctiva and corneal abrasion without foreign body sp3 Followup: sp3 - With: Stanton Srinivasan MD - When: Upon discharge from the Emergency Department - Reason: Recheck today's complaints Discharge Instructions: - Discharge Summary Sheet sp3 - Corneal Abrasion sp3 Forms: - Medication Reconciliation Form sp3 - Thank You Letter sp3 - Antibiotic Education sp3 - Prescription Opioid Use sp3 - Patient Portal Instructions sp3 - Leadership Thank You Letter sp3 Prescriptions: - Maxitrol 3.5 mg/g-10,000 unit/g-0.1 % Ophthalmic ointment - instill 1 application OPHTHALMIC route every 6 hours; 5 milliliter; Refills: 0, sp3 Product Selection Permitted Signatures: Sukumar Rodriges MD MD sp3 Britt Gupta, ANGELLA RN cm10
[2023-04-22] MEDS ORDERED: ACETAMINOPHEN 325 MG TABLET ONE (22:12)
[2023-04-22 22:57] VITALS: BP 116/64; TEMP 98.1; O2SAT 100
== END 2023-04-22 22:02 | disposition home or self-care (01) ==
LOC: ER 20:07
DX: S05.02XA Injury of conjunctiva and corneal abrasion without foreign body, left eye, initial encounter (principal)
CPT/HCPCS: 99284; J7040